=== PATIENT | female | born 1930 | race African-American/Black ===

== ENCOUNTER 2018-05-21 05:51 | Inpatient (IN) | payer MEDICARE ==
[2018-05-21] VITALS (7 sets, daily range): BP systolic 103–136; BP diastolic 44–94
[~2018-05-21] VITALS: Ht 162.6 cm; Wt 60.3 kg
[2018-05-21] MEDS ORDERED: METHYLPREDNISOLONE SOD SUCC 125 MG/2 ML VIAL IV STA (05:55)
[2018-05-21] MEDS ORDERED: IPRATROPIUM/ALBUTEROL 0.5-3(2.5)MG/3ML NEB HHN ONE (06:00)
[2018-05-21] MEDS ORDERED: MAGNESIUM 2 G PREMIX 50 ML IV ONE (06:00)
[2018-05-21] MEDS ORDERED: LEVOFLOXACIN 750MG PREMIX 150 ML IV ONE (06:00)
[2018-05-21 06:22] LABS: BASOPHILS % 0.8 % (0.0-2.0); EOSINOPHILS % 2.3 % (0.0-5.0); HEMATOCRIT. 25.3 % (36.0-48.0); HEMOGLOBIN. 8.2 g/dL (12.0-16.0); LYMPHOCYTES % 20.8 % (20.0-50.0); MEAN CORPUSCULAR HEMOGLOBIN 28.2 pg (28.0-32.0); MEAN CORPUSCULAR VOLUME 87.4 fL (81.0-99.0); MEAN PLATELET VOLUME 8.7 fl (7.4-10.4); MONOCYTES % 7.4 % (2.0-8.0); NEUTROPHILS % 68.7 % (40.0-76.0); PLATELET 216 x1000/uL (130-400); RED BLOOD CELL COUNT 2.89 mill/uL (4.2-5.4); RED CELL DISTRIBUTION WIDTH 14.5 % (11.6-14.6)
[2018-05-21 06:27] LABS: CHLORIDE 107 mEq/L (98-107)
[2018-05-21 06:29] LABS: INR 1.1; PARTIAL THROMBOPLASTIN TIME 25.2 sec (23.4-31.0)
[2018-05-21 06:31] LABS: ETHANOL BLOOD < 10 mg/dL
[2018-05-21] MEDS ORDERED: ALBUTEROL (0.083%) 2.5MG/3ML NEB HHN STA (06:41)
[2018-05-21 07:31] LABS: BG BASE EXCESS -3.8 mmol/L (-2.0-2.0); BG BILEVEL POS AIRWAY PRESSURE 15/8; BG CARBOXYHEMOGLOBIN 0.1 % (0.5-1.5); BG DEOXYHEMOGLOBIN 1.6 % (0.0-5.0); BG HCO3 ACT 20.7 mmol/L (22.0-26.0); BG METHEMOGLOBIN 0.3 % (0.0-1.5); BG OXYGEN SATURATION 98.4 % (92.0-98.5); BG PCO2 35.5 mmHg (35.0-45.0); BG PH 7.384 (7.350-7.450); BG PO2 134.8 mmHg (75.0-100.0); BG SAMPLE SITE RIGHT BRACHIAL; BG TOTAL HEMOGLOBIN 9.7 g/dL (12.0-18.0); BG VENT MODE MASK - BIPAP; BG VENT RATE 14 set
[2018-05-21] MEDS ORDERED: FUROSEMIDE 40MG/4ML VIAL IVP ONE (07:45)
[2018-05-21] MEDS ORDERED: ASPIRIN 325MG TABLET PO ONE (07:45)
[2018-05-21] MEDS ORDERED: ASPIRIN 81MG TABLET ONE (11:55)
[2018-05-21] MEDS ORDERED: CLONIDINE 0.1MG TABLET PO PRN (12:00)
[2018-05-21] MEDS ORDERED: GUAIFENESIN 200MG/10ML SUGAR FREE UDC PO PRN (12:00)
[2018-05-21] MEDS ORDERED: NITROGLYCERIN 0.4MG TABLET SL SL PRN (12:00)
[2018-05-21] MEDS ORDERED: DIPHENHYDRAMINE 50MG/ML VIAL IV PRN (12:00)
[2018-05-21] MEDS ORDERED: NA PHOS,M-B/NA PHOS,DI-BA ENEMA 118ML PR PRN (12:00)
[2018-05-21] MEDS ORDERED: ONDANSETRON HCL 4MG/2ML INJ IV PRN (12:00)
[2018-05-21] MEDS ORDERED: DOCUSATE SODIUM 100MG CAPSULE PO PRN (12:00)
[2018-05-21] MEDS ORDERED: MAGNESIUM/ALUMINUM HYDROXIDE/SIMETHICONE 30ML UDC PO PRN (12:00)
[2018-05-21 12:28] LABS: T4 FREE 0.99 ng/dL (0.76-1.46)
[2018-05-21 12:38] LABS: FOLIC ACID (FOLATE) SERUM 17.1 ng/mL (>5.38)
[2018-05-21] MEDS: MORPHINE SULFATE 4 MG/ML CPJ (NOT FOR IM USE) IV PRN ×2 (13:14→18:35)
[2018-05-21] MEDS: ENOXAPARIN 30MG/0.3ML SYR SUBCUT SCH (13:25)
[2018-05-21] MEDS: GUAIFENESIN/DM 600MG/30MG ER TAB 12HR PO SCH ×2 (13:25→21:05)
[2018-05-21] MEDS ORDERED: INFLUENZA VIRUS VACCINE(AFLURIA) 0.5ML SYR IM ONE (15:15)
[2018-05-21] MEDS ORDERED: PNEUMOCOCCAL 23-VAL P-SAC VAC 0.5 ML IM ONE (15:15)
[2018-05-21] MEDS: CEFTRIAXONE 1 G PREMIX 50 ML IV SCH (15:24)
[2018-05-21] MEDS: TRAMADOL 50MG TABLET PO PRN (15:30)
[2018-05-21 15:56] LABS: CREATINE KINASE MB FRACTION 6.6 ng/mL (0.5-3.6)
[2018-05-21] MEDS: ZOLPIDEM TARTRATE 5MG TABLET PO PRN (21:05)
[2018-05-21] MEDS: ATORVASTATIN CALCIUM 20MG TABLET PO SCH (21:05)
[2018-05-21] MEDS: ASCORBIC ACID 500 MG TABLET PO SCH (21:05)
[2018-05-21] MEDS: SPIRONOLACTONE 25MG TABLET PO SCH (21:05)
[2018-05-21] MEDS: CARVEDILOL 6.25 MG TABLET PO SCH (21:06)
[2018-05-21] MEDS: FUROSEMIDE 40MG/4ML VIAL IVP SCH (21:07)
[2018-05-21] MEDS: IPRATROPIUM/ALBUTEROL 0.5-3(2.5)MG/3ML NEB INH PRN (21:52)
[2018-05-21 23:20] LABS: CREATINE KINASE MB FRACTION 5.7 ng/mL (0.5-3.6)
[2018-05-22] VITALS (12 sets, daily range): BP systolic 83–130; BP diastolic 28–73
[2018-05-22] MEDS: IPRATROPIUM/ALBUTEROL 0.5-3(2.5)MG/3ML NEB INH PRN (02:48)
[2018-05-22] MEDS ORDERED: LEVOFLOXACIN 250MG PREMIX 50 ML IV SCH (05:00)
[2018-05-22] MEDS ORDERED: ASPIRIN 325MG EC TABLET PO SCH (09:00)
[2018-05-22] MEDS: GUAIFENESIN/DM 600MG/30MG ER TAB 12HR PO SCH ×2 (09:54→21:08)
[2018-05-22] MEDS: SPIRONOLACTONE 25MG TABLET PO SCH ×2 (09:54→21:08)
[2018-05-22] MEDS: ZINC SULFATE 220 MG ( 50 ) CAPSULE PO SCH (09:55)
[2018-05-22] MEDS: CARVEDILOL 6.25 MG TABLET PO SCH ×3 (09:55→21:00)
[2018-05-22] MEDS: ASCORBIC ACID 500 MG TABLET PO SCH ×2 (09:55→21:08)
[2018-05-22] MEDS: ENOXAPARIN 30MG/0.3ML SYR SUBCUT SCH ×2 (09:56→10:13)
[2018-05-22] MEDS: PANTOPRAZOLE SODIUM 40 MG/VIAL IV SCH (09:59)
[2018-05-22] MEDS: FUROSEMIDE 40MG/4ML VIAL IVP SCH ×2 (10:24→21:08)
[2018-05-22 11:07] LABS: BG BASE EXCESS -1.6 mmol/L (-2.0-2.0); BG BILEVEL POS AIRWAY PRESSURE 15/8; BG CARBOXYHEMOGLOBIN 0.2 % (0.5-1.5); BG DEOXYHEMOGLOBIN 1.2 % (0.0-5.0); BG FRACTION INSPIRED OXYGEN 35; BG HCO3 ACT 22.5 mmol/L (22.0-26.0); BG METHEMOGLOBIN 0.4 % (0.0-1.5); BG OXYGEN SATURATION 98.8 % (92.0-98.5); BG OXYHEMOGLOBIN 98.2 % (94.0-97.0); BG PCO2 35.1 mmHg (35.0-45.0); BG PH 7.425 (7.350-7.450); BG PO2 150.5 mmHg (75.0-100.0); BG SAMPLE SITE LEFT RADIAL; BG TOTAL HEMOGLOBIN 8.2 g/dL (12.0-18.0); BG VENT MODE MASK - BIPAP; BG VENT RATE 18 set
[2018-05-22] MEDS: METHYLPREDNISOLONE SOD SUCC 40 MG/ML VIAL IV SCH (17:01)
[2018-05-22] MEDS: CEFTRIAXONE 1 G PREMIX 50 ML IV SCH (17:01)
[2018-05-22] MEDS: VANCOMYCIN 1 G PREMIX 200 ML IV SCH ×2 (17:42→17:45)
[2018-05-22] MEDS: ATORVASTATIN CALCIUM 20MG TABLET PO SCH (21:08)
[2018-05-22] MEDS: IPRATROPIUM/ALBUTEROL 0.5-3(2.5)MG/3ML NEB HHN SCH (21:25)
[2018-05-22] MEDS: ACETAMINOPHEN 325MG TABLET PO PRN (22:03)
[2018-05-23] VITALS (13 sets, daily range): BP systolic 91–114; BP diastolic 56–74
[2018-05-23] MEDS: METHYLPREDNISOLONE SOD SUCC 40 MG/ML VIAL IV SCH ×3 (00:16→16:26)
[2018-05-23] MEDS: ZOLPIDEM TARTRATE 5MG TABLET PO PRN (00:21)
[2018-05-23] MEDS: LEVOFLOXACIN 250MG PREMIX 50 ML IV SCH (05:31)
[2018-05-23 07:09] LABS: HEMATOCRIT. 21.7 % (36.0-48.0); HEMOGLOBIN. 7.2 g/dL (12.0-16.0); MEAN CORPUSCULAR HEMOGLOBIN 28.5 pg (28.0-32.0); MEAN CORPUSCULAR VOLUME 85.8 fL (81.0-99.0); MEAN PLATELET VOLUME 9.8 fl (7.4-10.4); PLATELET 197 x1000/uL (130-400); RED BLOOD CELL COUNT 2.53 mill/uL (4.2-5.4); RED CELL DISTRIBUTION WIDTH 14.3 % (11.6-14.6)
[2018-05-23 08:29] LABS: CREATINE KINASE MB FRACTION 2.2 ng/mL (0.5-3.6)
[2018-05-23] MEDS: CARVEDILOL 6.25 MG TABLET PO SCH ×2 (08:56→21:00)
[2018-05-23] MEDS: GUAIFENESIN/DM 600MG/30MG ER TAB 12HR PO SCH ×2 (09:13→21:06)
[2018-05-23] MEDS: SPIRONOLACTONE 25MG TABLET PO SCH (09:13)
[2018-05-23] MEDS: ASCORBIC ACID 500 MG TABLET PO SCH ×2 (09:13→21:06)
[2018-05-23] MEDS: ZINC SULFATE 220 MG ( 50 ) CAPSULE PO SCH (09:13)
[2018-05-23] MEDS: ENOXAPARIN 30MG/0.3ML SYR SUBCUT SCH (09:14)
[2018-05-23] MEDS: PANTOPRAZOLE SODIUM 40 MG/VIAL IV SCH (09:15)
[2018-05-23] MEDS: FUROSEMIDE 40MG/4ML VIAL IVP SCH (09:17)
[2018-05-23] MEDS: CEFTRIAXONE 1 G PREMIX 50 ML IV SCH (11:00)
[2018-05-23] MEDS: IPRATROPIUM/ALBUTEROL 0.5-3(2.5)MG/3ML NEB HHN SCH ×3 (12:00→17:37)
[2018-05-23 13:31] LABS: PLATELET ESTIMATE NORMAL
[2018-05-23] MEDS ORDERED: VANCOMYCIN 750 MG PREMIX 150 ML IV SCH (17:30)
[2018-05-23] MEDS: PREDNISONE 20MG TABLET PO SCH (17:57)
[2018-05-23] MEDS ORDERED: VANCOMYCIN 500 MG PREMIX 100 ML IV SCH (21:00)
[2018-05-23] MEDS: ATORVASTATIN CALCIUM 20MG TABLET PO SCH (21:06)
[2018-05-23] MEDS: ACETAMINOPHEN 325MG TABLET PO PRN (21:07)
[2018-05-24] VITALS (12 sets, daily range): BP systolic 92–117; BP diastolic 55–74
[2018-05-24] MEDS: LEVOFLOXACIN 250MG PREMIX 50 ML IV SCH (04:52)
[2018-05-24] MEDS: ENOXAPARIN 30MG/0.3ML SYR SUBCUT SCH (09:00)
[2018-05-24] MEDS: CARVEDILOL 6.25 MG TABLET PO SCH ×2 (09:00→21:58)
[2018-05-24] MEDS: GUAIFENESIN/DM 600MG/30MG ER TAB 12HR PO SCH ×2 (09:03→21:59)
[2018-05-24] MEDS: ZINC SULFATE 220 MG ( 50 ) CAPSULE PO SCH (09:03)
[2018-05-24] MEDS: CEFTRIAXONE 1 G PREMIX 50 ML IV SCH (09:04)
[2018-05-24] MEDS: ASCORBIC ACID 500 MG TABLET PO SCH ×2 (09:04→21:59)
[2018-05-24] MEDS: PREDNISONE 20MG TABLET PO SCH ×2 (09:04→17:21)
[2018-05-24] MEDS: PANTOPRAZOLE SODIUM 40 MG/VIAL IV SCH (09:06)
[2018-05-24] MEDS: IPRATROPIUM/ALBUTEROL 0.5-3(2.5)MG/3ML NEB HHN SCH ×3 (09:25→20:59)
[2018-05-24 15:05] LABS: HEMATOCRIT. 25.5 % (36.0-48.0); HEMOGLOBIN. 8.3 g/dL (12.0-16.0); MEAN CORPUSCULAR VOLUME 85.6 fL (81.0-99.0); MEAN PLATELET VOLUME 9.4 fl (7.4-10.4); PLATELET 243 x1000/uL (130-400); RED BLOOD CELL COUNT 2.98 mill/uL (4.2-5.4); RED CELL DISTRIBUTION WIDTH 14.9 % (11.6-14.6)
[2018-05-24 16:24] LABS: BG CARBOXYHEMOGLOBIN 0.3 % (0.5-1.5); BG DEOXYHEMOGLOBIN 3.9 % (0.0-5.0); BG FRACTION INSPIRED OXYGEN 21; BG METHEMOGLOBIN 0.3 % (0.0-1.5); BG OXYGEN SATURATION 96.1 % (92.0-98.5); BG OXYHEMOGLOBIN 95.5 % (94.0-97.0); BG PCO2 34.1 mmHg (35.0-45.0); BG PH 7.428 (7.350-7.450); BG PO2 86.2 mmHg (75.0-100.0); BG SAMPLE SITE LEFT RADIAL; BG TOTAL HEMOGLOBIN 8.4 g/dL (12.0-18.0); BG VENT MODE ROOM AIR
[2018-05-24 16:43] LABS: PLATELET ESTIMATE NORMAL
[2018-05-24 19:32] LABS: CLARITY URINE CLEAR (CLEAR); COLOR URINE YELLOW (YELLOW); KETONES URINE NEGATIVE (NEGATIVE); LEUKOCYTE ESTERASE URINE NEGATIVE (NEGATIVE); NITRITE URINE NEGATIVE (NEGATIVE); OCCULT BLOOD URINE 1+ (NEGATIVE); PROTEIN URINE NEGATIVE (NEGATIVE); SPECIFIC GRAVITY URINE 1.006 (1.005-1.030); UROBILINOGEN URINE 0.2 E.U./dL (0.2-1.0)
[2018-05-24] MEDS: BUDESONIDE 0.5MG/2ML NEB HHN SCH (20:59)
[2018-05-24] MEDS: TRAMADOL 50MG TABLET PO PRN (21:02)
[2018-05-24] MEDS: ATORVASTATIN CALCIUM 20MG TABLET PO SCH (21:58)
[2018-05-25] VITALS (10 sets, daily range): BP systolic 91–119; BP diastolic 51–67
[2018-05-25] MEDS: IPRATROPIUM/ALBUTEROL 0.5-3(2.5)MG/3ML NEB HHN SCH ×3 (01:53→14:30)
[2018-05-25] MEDS: LEVOFLOXACIN 250MG PREMIX 50 ML IV SCH (05:12)
[2018-05-25 06:39] LABS: HEMATOCRIT. 23.7 % (36.0-48.0); MEAN CORPUSCULAR HEMOGLOBIN 28.8 pg (28.0-32.0); MEAN CORPUSCULAR VOLUME 85.7 fL (81.0-99.0); MEAN PLATELET VOLUME 9.6 fl (7.4-10.4); PLATELET 244 x1000/uL (130-400); RED BLOOD CELL COUNT 2.77 mill/uL (4.2-5.4); RED CELL DISTRIBUTION WIDTH 14.5 % (11.6-14.6)
[2018-05-25] MEDS: CEFTRIAXONE 1 G PREMIX 50 ML IV SCH (08:25)
[2018-05-25] MEDS: ENOXAPARIN 30MG/0.3ML SYR SUBCUT SCH (08:26)
[2018-05-25] MEDS: GUAIFENESIN/DM 600MG/30MG ER TAB 12HR PO SCH (08:26)
[2018-05-25] MEDS: ZINC SULFATE 220 MG ( 50 ) CAPSULE PO SCH (08:26)
[2018-05-25] MEDS: ASCORBIC ACID 500 MG TABLET PO SCH (08:27)
[2018-05-25] MEDS: BUDESONIDE 0.5MG/2ML NEB HHN SCH (08:45)
[2018-05-25 08:55] LABS: PLATELET ESTIMATE NORMAL
[2018-05-25] MEDS ORDERED: FAMOTIDINE 20MG TABLET PO SCH (09:00)
[2018-05-25] MEDS ORDERED: PREDNISONE 20MG TABLET PO SCH (09:00)
[2018-05-25] MEDS: CARVEDILOL 6.25 MG TABLET PO SCH (09:22)
== END 2018-05-25 15:55 | disposition home health service (06) | DRG 871 ==
LOC: ER 06:21 → 5EST 09:17 → EDBEDREQSVC 09:21 → EDBEDREQTM 09:21 → EDBEDREQ 09:21 → ENRESERV 10:48 → SUPCPDRO 11:58
PROVIDERS: ADMIT Internal Medicine; ATTEND Internal Medicine
PROC: 5A09357 Assistance with Respiratory Ventilation, Less than 24 Consecutive Hours, Continuous Positive Airway Pressure (ICD-10-PCS; principal; 2018-05-21)
DX: A41.9 Sepsis, unspecified organism (principal); I21.4 Non-ST elevation (NSTEMI) myocardial infarction; J96.00 Acute respiratory failure, unspecified whether with hypoxia or hypercapnia; E43 Unspecified severe protein-calorie malnutrition; I50.43 Acute on chronic combined systolic (congestive) and diastolic (congestive) heart failure; I42.9 Cardiomyopathy, unspecified; J44.1 Chronic obstructive pulmonary disease with (acute) exacerbation; J45.901 Unspecified asthma with (acute) exacerbation; N17.9 Acute kidney failure, unspecified; F17.210 Nicotine dependence, cigarettes, uncomplicated; R65.20 Severe sepsis without septic shock; B96.89 Other specified bacterial agents as the cause of diseases classified elsewhere; Z79.82 Long term (current) use of aspirin; D63.8 Anemia in other chronic diseases classified elsewhere; E78.5 Hyperlipidemia, unspecified; I11.0 Hypertensive heart disease with heart failure; I27.20 Pulmonary hypertension, unspecified; Z68.22 Body mass index [BMI] 22.0-22.9, adult
CPT/HCPCS: 36415; 36600; 71045; 80048; 80061; 82270; 82375; 82550; 82553; 82607; 82746; 82805; 83036; 83540; 83550; 83605; 83735; 83880; 84439; 84443; 84484; 93005; 93306; 94618; 94640; 94660; 96365; 96366; 96375; 97116; 97162; 97166; 97530; 99291; C9113; G0482; J0696; J1650; J1940; J1956; J2270; J2920; J2930; J3370; J3475; J7030; J7040; J7512; J7620; J7626; A4315

== ENCOUNTER 2018-08-09 13:46 | Inpatient (IN) | payer MEDICARE ==
[~2018-08-09] VITALS: Ht 172.7 cm; Wt 59.0 kg
[2018-08-09] MEDS ORDERED: IPRATROPIUM BROMIDE (0.02%) 0.5MG/2.5ML NEB HHN STA (14:09)
[2018-08-09] MEDS ORDERED: ALBUTEROL (0.083%) 2.5MG/3ML NEB HHN STA (14:09)
[2018-08-09] MEDS ORDERED: ASPIRIN 81MG TABLET PO ONE (14:15)
[2018-08-09 16:07] LABS: BASOPHILS % 0.5 % (0.0-2.0); EOSINOPHILS % 1.1 % (0.0-5.0); HEMATOCRIT. 29.5 % (36.0-48.0); HEMOGLOBIN. 9.3 g/dL (12.0-16.0); LYMPHOCYTES % 18.7 % (20.0-50.0); MEAN CORPUSCULAR HEMOGLOBIN 27.1 pg (28.0-32.0); MEAN CORPUSCULAR VOLUME 85.9 fL (81.0-99.0); MEAN PLATELET VOLUME 8.8 fl (7.4-10.4); MONOCYTES % 7.5 % (2.0-8.0); NEUTROPHILS % 72.2 % (40.0-76.0); PLATELET 243 x1000/uL (130-400); RED BLOOD CELL COUNT 3.44 mill/uL (4.2-5.4); RED CELL DISTRIBUTION WIDTH 18.5 % (11.6-14.6)
[2018-08-09 16:16] LABS: INR 1.1; PARTIAL THROMBOPLASTIN TIME 26.8 sec (23.4-31.0); PROTHROMBIN TIME 11.5 sec (9.1-11.1)
[2018-08-09 16:17] LABS: CHLORIDE 108 mEq/L (98-107)
[2018-08-09] MEDS ORDERED: FUROSEMIDE 20MG/2ML VIAL IVP ONE (16:45)
[2018-08-09] MEDS ORDERED: POTASSIUM CHLORIDE 20MEQ TABLET SR PO ONE (16:45)
[2018-08-09] MEDS ORDERED: MAGNESIUM HYDROXIDE 400MG/5ML 30ML UDC PO PRN (19:00)
[2018-08-09] MEDS ORDERED: IPRATROPIUM/ALBUTEROL 0.5-3(2.5)MG/3ML NEB INH PRN (19:00)
[2018-08-09] MEDS ORDERED: CLONIDINE 0.1MG TABLET PO PRN (19:00)
[2018-08-09] MEDS ORDERED: GUAIFENESIN 200MG/10ML SUGAR FREE UDC PO PRN (19:00)
[2018-08-09] MEDS ORDERED: LORAZEPAM 0.5MG TABLET PO PRN (19:00)
[2018-08-09] MEDS ORDERED: TEMAZEPAM 15MG CAPSULE PO PRN (19:00)
[2018-08-09] MEDS ORDERED: ONDANSETRON HCL 4MG/2ML INJ IV PRN (19:00)
[2018-08-09] MEDS ORDERED: MAGNESIUM/ALUMINUM HYDROXIDE/SIMETHICONE 30ML UDC PO PRN (19:00)
[2018-08-09 21:15] VITALS: BP 108/69
[2018-08-09] MEDS: CARVEDILOL 3.125 MG TABLET PO SCH (22:05)
[2018-08-09] MEDS: METHYLPREDNISOLONE SOD SUCC 40 MG/ML VIAL IV SCH (22:16)
[2018-08-09] MEDS: SODIUM CHLORIDE 0.9% INJ 3ML FLUSH IVF SCH (22:16)
[2018-08-09] MEDS: POTASSIUM CHLORIDE 20MEQ TABLET SR PO SCH (22:16)
[2018-08-09] MEDS: FAMOTIDINE 20MG TABLET PO SCH (22:16)
[2018-08-09] MEDS ORDERED: LISI2.5T89 PO (22:51)
[2018-08-09] MEDS ORDERED: FURO-151 PO (22:51)
[2018-08-09] MEDS ORDERED: COR3 PO (22:51)
[2018-08-10] VITALS: BP 105/69
[2018-08-10] MEDS: ACETAMINOPHEN 325MG TABLET PO PRN ×2 (00:05→17:08)
[2018-08-10] MEDS: IPRATROPIUM/ALBUTEROL 0.5-3(2.5)MG/3ML NEB HHN SCH ×6 (00:09→20:40)
[2018-08-10 04:00] VITALS: BP 98/59
[2018-08-10] MEDS: METHYLPREDNISOLONE SOD SUCC 40 MG/ML VIAL IV SCH ×3 (06:14→21:40)
[2018-08-10] MEDS: SODIUM CHLORIDE 0.9% INJ 3ML FLUSH IVF SCH ×2 (06:14→21:41)
[2018-08-10 08:00] VITALS: BP 102/66
[2018-08-10] MEDS: BUDESONIDE 0.5MG/2ML NEB HHN SCH ×2 (08:03→20:40)
[2018-08-10] MEDS ORDERED: ENOXAPARIN 40MG/0.4ML SYR SUBCUT SCH (09:00)
[2018-08-10] MEDS: CARVEDILOL 3.125 MG TABLET PO SCH ×2 (09:00→21:40)
[2018-08-10] MEDS ORDERED: FUROSEMIDE 40MG/4ML VIAL IVP SCH (09:00)
[2018-08-10] MEDS: LISINOPRIL 2.5MG TABLET PO SCH (09:00)
[2018-08-10] MEDS: ASPIRIN 81MG EC TABLET PO SCH (09:22)
[2018-08-10] MEDS: DOCUSATE SODIUM 100MG CAPSULE PO SCH ×2 (09:23→17:07)
[2018-08-10] MEDS: POTASSIUM CHLORIDE 20MEQ TABLET SR PO SCH (09:23)
[2018-08-10] MEDS: ENOXAPARIN 30MG/0.3ML SYR SUBCUT SCH (09:26)
[2018-08-10 12:00] VITALS: BP 111/63
[2018-08-10 16:00] VITALS: BP 105/62
[2018-08-10 20:00] VITALS: BP 118/74
[2018-08-10] MEDS: FAMOTIDINE 20MG TABLET PO SCH (21:40)
[2018-08-10] MEDS ORDERED: TRAMADOL 50MG TABLET PO PRN (22:15)
[2018-08-11] VITALS: BP 108/68
[2018-08-11] MEDS: IPRATROPIUM/ALBUTEROL 0.5-3(2.5)MG/3ML NEB HHN SCH ×6 (00:27→21:31)
[2018-08-11 04:00] VITALS: BP 100/68
[2018-08-11] MEDS: METHYLPREDNISOLONE SOD SUCC 40 MG/ML VIAL IV SCH ×3 (06:21→21:40)
[2018-08-11] MEDS: FUROSEMIDE 40MG/4ML VIAL IVP SCH ×2 (06:21→17:19)
[2018-08-11] MEDS: SODIUM CHLORIDE 0.9% INJ 3ML FLUSH IVF SCH ×2 (06:22→14:31)
[2018-08-11] MEDS: BUDESONIDE 0.5MG/2ML NEB HHN SCH ×2 (07:22→21:32)
[2018-08-11 08:00] VITALS: BP 105/66
[2018-08-11] MEDS: LISINOPRIL 2.5MG TABLET PO SCH (09:00)
[2018-08-11] MEDS: CARVEDILOL 3.125 MG TABLET PO SCH ×2 (09:00→21:00)
[2018-08-11] MEDS: DOCUSATE SODIUM 100MG CAPSULE PO SCH ×2 (09:02→17:19)
[2018-08-11] MEDS: ASPIRIN 81MG EC TABLET PO SCH (09:05)
[2018-08-11] MEDS: ENOXAPARIN 30MG/0.3ML SYR SUBCUT SCH (09:06)
[2018-08-11 12:00] VITALS: BP 111/62
[2018-08-11 16:00] VITALS: BP 115/57
[2018-08-11 20:00] VITALS: BP 102/70
[2018-08-11] MEDS: FAMOTIDINE 20MG TABLET PO SCH (21:41)
[2018-08-12] VITALS: BP 110/54
[2018-08-12] MEDS: IPRATROPIUM/ALBUTEROL 0.5-3(2.5)MG/3ML NEB HHN SCH ×5 (01:18→15:59)
[2018-08-12 04:00] VITALS: BP 107/69
[2018-08-12] MEDS: SODIUM CHLORIDE 0.9% INJ 3ML FLUSH IVF SCH ×3 (05:41→13:04)
[2018-08-12] MEDS: METHYLPREDNISOLONE SOD SUCC 40 MG/ML VIAL IV SCH (05:41)
[2018-08-12 08:00] VITALS: BP_SYST 102; BP_SYST 95; BP_DIAS 65; BP_DIAS 67
[2018-08-12] MEDS: BUDESONIDE 0.5MG/2ML NEB HHN SCH (08:09)
[2018-08-12] MEDS: FUROSEMIDE 40MG/4ML VIAL IVP SCH ×2 (08:14→16:45)
[2018-08-12] MEDS: ASPIRIN 81MG EC TABLET PO SCH (08:16)
[2018-08-12] MEDS: DOCUSATE SODIUM 100MG CAPSULE PO SCH ×2 (08:16→16:52)
[2018-08-12] MEDS: ENOXAPARIN 30MG/0.3ML SYR SUBCUT SCH (08:17)
[2018-08-12] MEDS: CARVEDILOL 3.125 MG TABLET PO SCH (08:18)
[2018-08-12] MEDS: LISINOPRIL 2.5MG TABLET PO SCH (08:19)
[2018-08-12 12:00] VITALS: BP_SYST 95; BP_DIAS 63; BP_DIAS 65
[2018-08-12] MEDS ORDERED: PREDNISONE 20MG TABLET PO SCH (14:00)
[2018-08-12 16:19] VITALS: BP 107/66
[2018-08-12 17:20] VITALS: BP 107/66
== END 2018-08-12 18:30 | disposition home health service (06) | DRG 291 ==
LOC: ER 13:46 → 7WST 16:47 → ENRESERV 19:54
PROVIDERS: ADMIT Internal Medicine; ATTEND Internal Medicine
DX: I11.0 Hypertensive heart disease with heart failure (principal); J96.90 Respiratory failure, unspecified, unspecified whether with hypoxia or hypercapnia; E43 Unspecified severe protein-calorie malnutrition; J44.1 Chronic obstructive pulmonary disease with (acute) exacerbation; Z68.1 Body mass index [BMI] 19.9 or less, adult; I50.23 Acute on chronic systolic (congestive) heart failure; E11.51 Type 2 diabetes mellitus with diabetic peripheral angiopathy without gangrene; Z87.891 Personal history of nicotine dependence; Z91.041 Radiographic dye allergy status
CPT/HCPCS: 36415; 71045; 80048; 80051; 83735; 83880; 84443; 84484; 93005; 93970; 94640; 96374; 99291; J1650; J1940; J2920; J7512; J7611; J7620; J7626

== ENCOUNTER 2018-08-16 23:42 | Inpatient (IN) | payer MEDICARE ==
[~2018-08-16] VITALS: Ht 172.7 cm; Wt 79.5 kg
[~2018-08-16 23:42] MED LIST: FURO-151 PO
[2018-08-17 01:02] LABS: BASOPHILS % 0.6 % (0.0-2.0); EOSINOPHILS % 0.7 % (0.0-5.0); HEMATOCRIT. 30.8 % (36.0-48.0); HEMOGLOBIN. 9.6 g/dL (12.0-16.0); LYMPHOCYTES % 15.2 % (20.0-50.0); MEAN CORPUSCULAR HEMOGLOBIN 26.5 pg (28.0-32.0); MEAN CORPUSCULAR VOLUME 85.1 fL (81.0-99.0); MEAN PLATELET VOLUME 9.2 fl (7.4-10.4); NEUTROPHILS % 76.5 % (40.0-76.0); PLATELET 235 x1000/uL (130-400); RED BLOOD CELL COUNT 3.62 mill/uL (4.2-5.4); RED CELL DISTRIBUTION WIDTH 17.6 % (11.6-14.6)
[2018-08-17 01:08] LABS: CHLORIDE 102 mEq/L (98-107)
[2018-08-17] MEDS ORDERED: SODIUM CHLORIDE 0.9% 1000ML BAG (SEPSIS BOLUS) IV ONE (01:30)
[2018-08-17] MEDS ORDERED: ASPIRIN 325MG EC TABLET PO NR (01:30)
[2018-08-17] MEDS ORDERED: ENOXAPARIN 60MG/0.6ML SYR SUBCUT NR (05:00)
[2018-08-17 08:18] LABS: CLARITY URINE CLEAR (CLEAR); COLOR URINE YELLOW (YELLOW); KETONES URINE NEGATIVE (NEGATIVE); LEUKOCYTE ESTERASE URINE 2+ (NEGATIVE); NITRITE URINE NEGATIVE (NEGATIVE); OCCULT BLOOD URINE 1+ (NEGATIVE); PROTEIN URINE NEGATIVE (NEGATIVE); SPECIFIC GRAVITY URINE 1.004 (1.005-1.030); UROBILINOGEN URINE 0.2 E.U./dL (0.2-1.0)
[2018-08-17 08:45] VITALS: BP 93/62
[2018-08-17 10:00] VITALS: BP 93/62
[2018-08-17] MEDS ORDERED: ENOXAPARIN 40MG/0.4ML SYR SUBCUT SCH (10:15)
[2018-08-17] MEDS: FUROSEMIDE 40MG/4ML VIAL IVP SCH ×2 (10:15→14:00)
[2018-08-17] MEDS ORDERED: ACETAMINOPHEN 325MG TABLET PO PRN (10:15)
[2018-08-17] MEDS ORDERED: ONDANSETRON HCL 4MG/2ML INJ IV PRN (10:15)
[2018-08-17] MEDS ORDERED: CLONIDINE 0.1MG TABLET PO PRN (10:15)
[2018-08-17] MEDS ORDERED: MAGNESIUM/ALUMINUM HYDROXIDE/SIMETHICONE 30ML UDC PO PRN (10:15)
[2018-08-17] MEDS: METHYLPREDNISOLONE SOD SUCC 40 MG/ML VIAL IV SCH ×2 (11:15→18:14)
[2018-08-17 12:00] VITALS: BP 109/62
[2018-08-17] MEDS: IPRATROPIUM/ALBUTEROL 0.5-3(2.5)MG/3ML NEB HHN SCH ×3 (12:59→20:48)
[2018-08-17] MEDS ORDERED: PNEUMOCOCCAL 23-VAL P-SAC VAC 0.5 ML IM ONE (14:00)
[2018-08-17] MEDS ORDERED: INFLUENZA VIRUS VACCINE(AFLURIA) 0.5ML SYR IM ONE (14:00)
[2018-08-17 16:00] VITALS: BP 106/66
[2018-08-17] MEDS: DOCUSATE SODIUM 100MG CAPSULE PO SCH (18:13)
[2018-08-17 20:00] VITALS: BP 102/60
[2018-08-17] MEDS: SODIUM CHLORIDE 0.9% INJ 3ML FLUSH IVF SCH (20:16)
[2018-08-17] MEDS: CARVEDILOL 3.125 MG TABLET PO SCH (21:00)
[2018-08-17] MEDS: FAMOTIDINE 20MG TABLET PO SCH (21:39)
[2018-08-17] MEDS: TRAMADOL 50MG TABLET PO PRN (21:46)
[2018-08-17] MEDS: GUAIFENESIN 200MG/10ML SUGAR FREE UDC PO PRN (23:40)
[2018-08-17] MEDS: LORAZEPAM 0.5MG TABLET PO PRN (23:49)
[2018-08-18] VITALS (21 sets, daily range): BP systolic 81–131; BP diastolic 48–84
[2018-08-18] MEDS: IPRATROPIUM/ALBUTEROL 0.5-3(2.5)MG/3ML NEB HHN SCH ×5 (00:43→15:54)
[2018-08-18] MEDS: METHYLPREDNISOLONE SOD SUCC 40 MG/ML VIAL IV SCH ×4 (02:49→23:56)
[2018-08-18] MEDS: SODIUM CHLORIDE 0.9% INJ 3ML FLUSH IVF SCH ×4 (02:50→22:00)
[2018-08-18] MEDS ORDERED: DIGOXIN 500MCG/2ML AMP IV NR (08:30)
[2018-08-18] MEDS: DOCUSATE SODIUM 100MG CAPSULE PO SCH ×2 (08:35→18:21)
[2018-08-18] MEDS: ASPIRIN 81MG EC TABLET PO SCH (08:35)
[2018-08-18] MEDS: POTASSIUM CHLORIDE 20MEQ TABLET SR PO SCH (08:35)
[2018-08-18] MEDS: LISINOPRIL 2.5MG TABLET PO SCH (08:36)
[2018-08-18] MEDS: CARVEDILOL 3.125 MG TABLET PO SCH ×2 (08:36→21:00)
[2018-08-18] MEDS ORDERED: ENOXAPARIN 30MG/0.3ML SYR SUBCUT SCH (09:00)
[2018-08-18] MEDS: TRAMADOL 50MG TABLET PO PRN (13:35)
[2018-08-18] MEDS ORDERED: EPINEPHRINE 0.1MG/ML (1:10,000) 10ML SYR ONE (13:43)
[2018-08-18] MEDS: LORAZEPAM 0.5MG TABLET PO PRN (14:00)
[2018-08-18] MEDS ORDERED: SUCCINYLCHOLINE CHLORIDE 200MG/10ML IV ONE (15:18)
[2018-08-18] MEDS ORDERED: ETOMIDATE 2MG/ML 10ML VIAL IV ONE (15:18)
[2018-08-18] MEDS: THROAT LOZENGES-BENZOCAINE/MENTH/CETYLPYRD CL LOZENGES MM PRN (16:44)
[2018-08-18] MEDS: DIGOXIN 125MCG TABLET PO SCH (18:21)
[2018-08-18 20:43] LABS: BG BASE EXCESS -19.1 mmol/L (-2.0-2.0); BG CARBOXYHEMOGLOBIN 0.3 % (0.5-1.5); BG DEOXYHEMOGLOBIN 1.1 % (0.0-5.0); BG FRACTION INSPIRED OXYGEN 100; BG HCO3 ACT 9.8 mmol/L (22.0-26.0); BG METHEMOGLOBIN 0.1 % (0.0-1.5); BG OXYGEN SATURATION 98.9 % (92.0-98.5); BG OXYHEMOGLOBIN 98.5 % (94.0-97.0); BG PH 7.076 (7.350-7.450); BG PO2 227.7 mmHg (75.0-100.0); BG SAMPLE SITE RIGHT BRACHIAL; BG TIDAL VOLUME(mL) 550 mL; BG TOTAL HEMOGLOBIN 9.9 g/dL (12.0-18.0); BG VENT MODE VENT - A/C; BG VENT RATE 14 set
[2018-08-18] MEDS: LORAZEPAM 2MG/ML CPJ IV PRN (20:58)
[2018-08-18] MEDS: FAMOTIDINE 20MG TABLET PO SCH (21:00)
[2018-08-18] MEDS ORDERED: SODIUM BICARBONATE 8.4% 1 MEQ/ML 50ML SYR IV NR (21:15)
[2018-08-18] MEDS: PROPOFOL 10MG/ML 100ML 100 ML IV PRN (21:29)
[2018-08-18] MEDS ORDERED: SODIUM BICARBONATE 150 MEQ in DEXTROSE 5% WATER 1,000 ML IV SCH (23:00)
[2018-08-18 23:08] LABS: HEMATOCRIT. 29.9 % (36.0-48.0); HEMOGLOBIN. 9.2 g/dL (12.0-16.0); MEAN CORPUSCULAR HEMOGLOBIN 26.6 pg (28.0-32.0); MEAN CORPUSCULAR VOLUME 85.9 fL (81.0-99.0); MEAN PLATELET VOLUME 9.2 fl (7.4-10.4); PLATELET 235 x1000/uL (130-400); RED BLOOD CELL COUNT 3.48 mill/uL (4.2-5.4); RED CELL DISTRIBUTION WIDTH 17.8 % (11.6-14.6)
[2018-08-18 23:22] LABS: CREATINE KINASE MB FRACTION 11.6 ng/mL (0.5-3.6)
[2018-08-18] MEDS ORDERED: DEXTROSE 50% WATER 50ML SYRINGE IV PRN (23:30)
[2018-08-18 23:58] LABS: PLATELET ESTIMATE NORMAL
[2018-08-19] VITALS (83 sets, daily range): BP systolic 83–139; BP diastolic 27–82
[2018-08-19] MEDS ORDERED: BLOOD SUGAR DIAGNOSTIC STRIP TEST SCH
[2018-08-19] MEDS ORDERED: CEFTRIAXONE 1 G PREMIX 50 ML IV SCH
[2018-08-19 00:25] LABS: BG BASE EXCESS -5.6 mmol/L (-2.0-2.0); BG CARBOXYHEMOGLOBIN 0.3 % (0.5-1.5); BG DEOXYHEMOGLOBIN 16.8 % (0.0-5.0); BG FRACTION INSPIRED OXYGEN 70; BG HCO3 ACT 19.5 mmol/L (22.0-26.0); BG METHEMOGLOBIN 0.3 % (0.0-1.5); BG OXYGEN SATURATION 83.1 % (92.0-98.5); BG OXYHEMOGLOBIN 82.6 % (94.0-97.0); BG PCO2 36.4 mmHg (35.0-45.0); BG PH 7.346 (7.350-7.450); BG PO2 52.7 mmHg (75.0-100.0); BG SAMPLE SITE RIGHT BRACHIAL; BG TIDAL VOLUME(mL) 550 mL; BG VENT MODE VENT - A/C; BG VENT RATE 18 set
[2018-08-19] MEDS: IPRATROPIUM/ALBUTEROL 0.5-3(2.5)MG/3ML NEB HHN SCH ×6 (00:38→20:13)
[2018-08-19] MEDS ORDERED: DEXTROSE 50% WATER 50ML SYRINGE IV SCH (00:45)
[2018-08-19] MEDS ORDERED: INSULIN REGULAR (HUMULIN R) 300UNITS/3ML SUBCUT SCH (00:45)
[2018-08-19] MEDS: ENOXAPARIN 60MG/0.6ML SYR SUBCUT SCH (01:40)
[2018-08-19] MEDS: INSULIN LISPRO 100 UNITS/ML SUBCUT SCH ×4 (01:42→23:49)
[2018-08-19] MEDS ORDERED: VANCOMYCIN 1250MG in DEXTROSE 5% WATER 250ML IV SCH (02:00)
[2018-08-19] MEDS: BLOOD SUGAR DIAGNOSTIC STRIP TEST SCH ×5 (05:27→23:49)
[2018-08-19] MEDS: METHYLPREDNISOLONE SOD SUCC 40 MG/ML VIAL IV SCH ×3 (05:31→21:14)
[2018-08-19] MEDS: SODIUM CHLORIDE 0.9% INJ 3ML FLUSH IVF SCH ×3 (06:00→22:00)
[2018-08-19 08:36] LABS: HEMATOCRIT. 33.2 % (36.0-48.0); MEAN CORPUSCULAR HEMOGLOBIN 26.5 pg (28.0-32.0); MEAN CORPUSCULAR VOLUME 88.2 fL (81.0-99.0); MEAN PLATELET VOLUME 9.7 fl (7.4-10.4); PLATELET 208 x1000/uL (130-400); RED BLOOD CELL COUNT 3.76 mill/uL (4.2-5.4); RED CELL DISTRIBUTION WIDTH 18.2 % (11.6-14.6)
[2018-08-19 08:49] LABS: BG BASE EXCESS -0.4 mmol/L (-2.0-2.0); BG CARBOXYHEMOGLOBIN 0.3 % (0.5-1.5); BG DEOXYHEMOGLOBIN 1.1 % (0.0-5.0); BG FRACTION INSPIRED OXYGEN 100; BG HCO3 ACT 21.7 mmol/L (22.0-26.0); BG METHEMOGLOBIN 0.4 % (0.0-1.5); BG OXYGEN SATURATION 98.9 % (92.0-98.5); BG OXYHEMOGLOBIN 98.2 % (94.0-97.0); BG PH 7.523 (7.350-7.450); BG PO2 136.5 mmHg (75.0-100.0); BG SAMPLE SITE RIGHT BRACHIAL; BG TIDAL VOLUME(mL) 550 mL; BG TOTAL HEMOGLOBIN 9.4 g/dL (12.0-18.0); BG VENT MODE VENT - A/C; BG VENT RATE 18 set
[2018-08-19] MEDS: POTASSIUM CHLORIDE 20MEQ TABLET SR PO SCH (09:00)
[2018-08-19] MEDS: LISINOPRIL 2.5MG TABLET PO SCH (09:00)
[2018-08-19] MEDS: DOCUSATE SODIUM 100MG CAPSULE PO SCH (09:00)
[2018-08-19] MEDS: PROPOFOL 10MG/ML 100ML 100 ML IV PRN (09:41)
[2018-08-19] MEDS: ASPIRIN 81MG EC TABLET PO SCH (09:55)
[2018-08-19] MEDS: PANTOPRAZOLE SODIUM 40 MG/VIAL IV SCH (09:55)
[2018-08-19] MEDS: CARVEDILOL 3.125 MG TABLET PO SCH ×2 (09:55→21:00)
[2018-08-19] MEDS ORDERED: FUROSEMIDE 40MG/4ML VIAL IVP NR (11:45)
[2018-08-19] MEDS ORDERED: SODIUM POLYSTYRENE SULFONATE 15 G/60 ML BOT PO NR (13:00)
[2018-08-19] MEDS: PIPERACILLIN/TAZ 3.375G PREMIX 50 ML IV SCH ×2 (13:17→21:14)
[2018-08-19] MEDS: CITRIC ACID/SODIUM CITRATE SOLN 15ML UDC PO SCH ×2 (13:23→16:14)
[2018-08-19 15:44] LABS: INR 1.2
[2018-08-19 15:51] LABS: PLATELET ESTIMATE NORMAL
[2018-08-19] MEDS: DOCUSATE SODIUM SUGAR FREE 100MG/10ML UDC NG SCH (16:13)
[2018-08-19] MEDS: DIGOXIN 125MCG TABLET PO SCH (18:30)
[2018-08-19] MEDS ORDERED: PROPOFOL 10MG/ML 100ML 100 ML IV PRN (23:30)
[2018-08-20] VITALS (52 sets, daily range): BP systolic 89–126; BP diastolic 44–76
[2018-08-20] MEDS: IPRATROPIUM/ALBUTEROL 0.5-3(2.5)MG/3ML NEB HHN SCH ×6 (00:14→20:31)
[2018-08-20] MEDS ORDERED: VANCOMYCIN 750 MG PREMIX 150 ML IV SCH (02:00)
[2018-08-20] MEDS ORDERED: VANCOMYCIN 1 G PREMIX 200 ML IV SCH (02:00)
[2018-08-20] MEDS: ENOXAPARIN 60MG/0.6ML SYR SUBCUT SCH (02:09)
[2018-08-20] MEDS: PIPERACILLIN/TAZ 3.375G PREMIX 50 ML IV SCH ×3 (04:49→21:17)
[2018-08-20 05:34] LABS: PHOSPHORUS 4.7 mg/dL (2.5-4.9)
[2018-08-20 05:55] LABS: DIGOXIN 0.8 ng/mL (0.9-2.0)
[2018-08-20] MEDS: BLOOD SUGAR DIAGNOSTIC STRIP TEST SCH ×3 (05:55→17:08)
[2018-08-20] MEDS: SODIUM CHLORIDE 0.9% INJ 3ML FLUSH IVF SCH ×3 (05:55→22:00)
[2018-08-20] MEDS: METHYLPREDNISOLONE SOD SUCC 40 MG/ML VIAL IV SCH ×3 (05:56→21:45)
[2018-08-20] MEDS: INSULIN LISPRO 100 UNITS/ML SUBCUT SCH ×3 (06:00→17:16)
[2018-08-20 08:08] LABS: BG BASE EXCESS 0.4 mmol/L (-2.0-2.0); BG CARBOXYHEMOGLOBIN 0.3 % (0.5-1.5); BG DEOXYHEMOGLOBIN 0.6 % (0.0-5.0); BG FRACTION INSPIRED OXYGEN 80; BG HCO3 ACT 23.4 mmol/L (22.0-26.0); BG OXYGEN SATURATION 99.4 % (92.0-98.5); BG OXYHEMOGLOBIN 99.1 % (94.0-97.0); BG PCO2 31.7 mmHg (35.0-45.0); BG PH 7.486 (7.350-7.450); BG PO2 307.8 mmHg (75.0-100.0); BG SAMPLE SITE RIGHT BRACHIAL; BG TIDAL VOLUME(mL) 500 mL; BG TOTAL HEMOGLOBIN 9.4 g/dL (12.0-18.0); BG VENT MODE VENT - A/C; BG VENT RATE 16 set
[2018-08-20] MEDS: CARVEDILOL 3.125 MG TABLET PO SCH ×2 (08:08→21:00)
[2018-08-20] MEDS: LISINOPRIL 2.5MG TABLET PO SCH (08:09)
[2018-08-20] MEDS: POTASSIUM CHLORIDE 20MEQ TABLET SR PO SCH (08:09)
[2018-08-20] MEDS: CITRIC ACID/SODIUM CITRATE SOLN 15ML UDC PO SCH (08:10)
[2018-08-20] MEDS: PANTOPRAZOLE SODIUM 40 MG/VIAL IV SCH (08:10)
[2018-08-20] MEDS: DOCUSATE SODIUM SUGAR FREE 100MG/10ML UDC NG SCH ×2 (08:10→17:14)
[2018-08-20] MEDS: ASPIRIN 81MG EC TABLET PO SCH (08:10)
[2018-08-20] MEDS ORDERED: SORBITOL 70% SOLN 30ML NG NR (09:30)
[2018-08-20] MEDS: SODIUM CHLORIDE 0.45% 1,000 ML IV SCH (11:04)
[2018-08-20] MEDS: PROPOFOL 10MG/ML 100ML 100 ML IV PRN (11:18)
[2018-08-20 11:24] LABS: HEMATOCRIT. 25.4 % (36.0-48.0); HEMOGLOBIN. 8.3 g/dL (12.0-16.0); MEAN CORPUSCULAR VOLUME 83.2 fL (81.0-99.0); MEAN PLATELET VOLUME 9.6 fl (7.4-10.4); PLATELET 166 x1000/uL (130-400); RED BLOOD CELL COUNT 3.06 mill/uL (4.2-5.4); RED CELL DISTRIBUTION WIDTH 17.8 % (11.6-14.6)
[2018-08-20] MEDS ORDERED: FUROSEMIDE 40MG/4ML VIAL IVP NR (12:00)
[2018-08-20 12:40] LABS: PLATELET ESTIMATE NORMAL
[2018-08-20] MEDS: DIGOXIN 125MCG TABLET PO SCH (17:14)
[2018-08-21] VITALS (48 sets, daily range): BP systolic 84–115; BP diastolic 43–70
[2018-08-21] MEDS: BLOOD SUGAR DIAGNOSTIC STRIP TEST SCH ×4 (00:07→17:38)
[2018-08-21] MEDS: IPRATROPIUM/ALBUTEROL 0.5-3(2.5)MG/3ML NEB HHN SCH ×6 (00:20→20:50)
[2018-08-21] MEDS: PROPOFOL 10MG/ML 100ML 100 ML IV PRN ×2 (00:56→12:14)
[2018-08-21] MEDS: ENOXAPARIN 60MG/0.6ML SYR SUBCUT SCH (02:33)
[2018-08-21] MEDS: METHYLPREDNISOLONE SOD SUCC 40 MG/ML VIAL IV SCH ×3 (05:09→21:33)
[2018-08-21] MEDS: PIPERACILLIN/TAZ 3.375G PREMIX 50 ML IV SCH ×3 (05:09→21:31)
[2018-08-21] MEDS: INSULIN LISPRO 100 UNITS/ML SUBCUT SCH ×4 (05:10→17:38)
[2018-08-21 06:24] LABS: HEMATOCRIT. 26.7 % (36.0-48.0); HEMOGLOBIN. 8.5 g/dL (12.0-16.0); MEAN CORPUSCULAR VOLUME 84.4 fL (81.0-99.0); MEAN PLATELET VOLUME 9.6 fl (7.4-10.4); PLATELET 172 x1000/uL (130-400); RED BLOOD CELL COUNT 3.16 mill/uL (4.2-5.4); RED CELL DISTRIBUTION WIDTH 17.8 % (11.6-14.6)
[2018-08-21] MEDS: SODIUM CHLORIDE 0.9% INJ 3ML FLUSH IVF SCH ×3 (06:25→22:00)
[2018-08-21 06:58] LABS: PHOSPHORUS 5.4 mg/dL (2.5-4.9)
[2018-08-21 07:50] LABS: PLATELET ESTIMATE NORMAL
[2018-08-21] MEDS ORDERED: VANCOMYCIN 750 MG PREMIX 150 ML IV NR (08:00)
[2018-08-21] MEDS: DOCUSATE SODIUM SUGAR FREE 100MG/10ML UDC NG SCH ×2 (08:31→17:00)
[2018-08-21] MEDS: PANTOPRAZOLE SODIUM 40 MG/VIAL IV SCH (08:38)
[2018-08-21] MEDS: ASPIRIN 81MG EC TABLET PO SCH (08:38)
[2018-08-21] MEDS: CARVEDILOL 3.125 MG TABLET PO SCH ×2 (08:39→21:00)
[2018-08-21 08:48] LABS: BG BASE EXCESS 2.8 mmol/L (-2.0-2.0); BG CARBOXYHEMOGLOBIN 0.4 % (0.5-1.5); BG DEOXYHEMOGLOBIN 1.2 % (0.0-5.0); BG FRACTION INSPIRED OXYGEN 50; BG HCO3 ACT 26.9 mmol/L (22.0-26.0); BG METHEMOGLOBIN 0.5 % (0.0-1.5); BG OXYGEN SATURATION 98.8 % (92.0-98.5); BG OXYHEMOGLOBIN 97.9 % (94.0-97.0); BG PCO2 39.3 mmHg (35.0-45.0); BG PH 7.453 (7.350-7.450); BG PO2 149.8 mmHg (75.0-100.0); BG SAMPLE SITE LEFT BRACHIAL; BG TIDAL VOLUME(mL) 500 mL; BG TOTAL HEMOGLOBIN 8.9 g/dL (12.0-18.0); BG VENT MODE VENT - A/C; BG VENT RATE 12 set
[2018-08-21] MEDS: SODIUM CHLORIDE 0.45% 1,000 ML IV SCH (14:02)
[2018-08-21] MEDS: DIGOXIN 125MCG TABLET PO SCH (17:40)
[2018-08-22] VITALS (45 sets, daily range): BP systolic 85–119; BP diastolic 32–70
[2018-08-22] MEDS: INSULIN LISPRO 100 UNITS/ML SUBCUT SCH ×4 (00:11→17:45)
[2018-08-22] MEDS: BLOOD SUGAR DIAGNOSTIC STRIP TEST SCH ×4 (00:11→17:45)
[2018-08-22] MEDS: IPRATROPIUM/ALBUTEROL 0.5-3(2.5)MG/3ML NEB HHN SCH ×6 (00:37→20:23)
[2018-08-22] MEDS: ENOXAPARIN 60MG/0.6ML SYR SUBCUT SCH ×2 (02:00→02:55)
[2018-08-22] MEDS: PROPOFOL 10MG/ML 100ML 100 ML IV PRN (02:55)
[2018-08-22] MEDS: PIPERACILLIN/TAZ 3.375G PREMIX 50 ML IV SCH ×4 (05:26→21:15)
[2018-08-22] MEDS: METHYLPREDNISOLONE SOD SUCC 40 MG/ML VIAL IV SCH ×2 (05:28→16:59)
[2018-08-22] MEDS: SODIUM CHLORIDE 0.9% INJ 3ML FLUSH IVF SCH ×3 (05:35→21:01)
[2018-08-22 05:43] LABS: HEMATOCRIT. 25.5 % (36.0-48.0); HEMOGLOBIN. 8.1 g/dL (12.0-16.0); MEAN CORPUSCULAR HEMOGLOBIN 26.8 pg (28.0-32.0); MEAN CORPUSCULAR VOLUME 84.8 fL (81.0-99.0); MEAN PLATELET VOLUME 9.7 fl (7.4-10.4); PHOSPHORUS 4.3 mg/dL (2.5-4.9); PLATELET 155 x1000/uL (130-400); RED CELL DISTRIBUTION WIDTH 18.2 % (11.6-14.6)
[2018-08-22 07:40] LABS: BG BASE EXCESS 2.5 mmol/L (-2.0-2.0); BG CARBOXYHEMOGLOBIN 0.3 % (0.5-1.5); BG DEOXYHEMOGLOBIN 1.5 % (0.0-5.0); BG FRACTION INSPIRED OXYGEN 40; BG HCO3 ACT 26.1 mmol/L (22.0-26.0); BG METHEMOGLOBIN 0.3 % (0.0-1.5); BG OXYGEN SATURATION 98.5 % (92.0-98.5); BG OXYHEMOGLOBIN 97.9 % (94.0-97.0); BG PCO2 36.2 mmHg (35.0-45.0); BG PH 7.476 (7.350-7.450); BG PO2 140.9 mmHg (75.0-100.0); BG SAMPLE SITE RIGHT RADIAL; BG TIDAL VOLUME(mL) 500 mL; BG TOTAL HEMOGLOBIN 8.2 g/dL (12.0-18.0); BG VENT MODE VENT - A/C; BG VENT RATE 12 set
[2018-08-22 08:05] LABS: PLATELET ESTIMATE NORMAL
[2018-08-22] MEDS: DOCUSATE SODIUM SUGAR FREE 100MG/10ML UDC NG SCH ×2 (08:13→16:02)
[2018-08-22] MEDS: CARVEDILOL 3.125 MG TABLET PO SCH ×2 (08:13→21:00)
[2018-08-22] MEDS: ASPIRIN 81MG EC TABLET PO SCH (08:20)
[2018-08-22] MEDS: SODIUM CHLORIDE 0.45% 1,000 ML IV SCH (08:20)
[2018-08-22] MEDS: PANTOPRAZOLE SODIUM 40 MG/VIAL IV SCH (08:20)
[2018-08-22] MEDS ORDERED: PROPOFOL 10MG/ML 100ML 100 ML IV PRN (10:30)
[2018-08-22] MEDS ORDERED: LORAZEPAM 2MG/ML CPJ IV PRN (10:30)
[2018-08-22] MEDS: VANCOMYCIN 1 G PREMIX 200 ML IV SCH (11:10)
[2018-08-22] MEDS: LORAZEPAM 2MG/ML CPJ IV PRN ×2 (11:55→21:15)
[2018-08-22] MEDS: DIGOXIN 125MCG TABLET PO SCH (16:59)
[2018-08-23] VITALS (46 sets, daily range): BP systolic 85–131; BP diastolic 42–82
[2018-08-23] MEDS: BLOOD SUGAR DIAGNOSTIC STRIP TEST SCH ×5 (00:24→23:45)
[2018-08-23] MEDS: INSULIN LISPRO 100 UNITS/ML SUBCUT SCH ×5 (00:25→23:47)
[2018-08-23] MEDS: IPRATROPIUM/ALBUTEROL 0.5-3(2.5)MG/3ML NEB HHN SCH ×7 (00:39→20:18)
[2018-08-23] MEDS: ENOXAPARIN 60MG/0.6ML SYR SUBCUT SCH (02:58)
[2018-08-23] MEDS: LORAZEPAM 2MG/ML CPJ IV PRN ×4 (03:37→20:16)
[2018-08-23] MEDS: IPRATROPIUM/ALBUTEROL 0.5-3(2.5)MG/3ML NEB INH PRN (04:51)
[2018-08-23 05:27] LABS: BASOPHILS % 0.3 % (0.0-2.0); EOSINOPHILS % 0.1 % (0.0-5.0); HEMATOCRIT. 26.1 % (36.0-48.0); HEMOGLOBIN. 8.2 g/dL (12.0-16.0); LYMPHOCYTES % 7.5 % (20.0-50.0); MEAN CORPUSCULAR HEMOGLOBIN 26.5 pg (28.0-32.0); MEAN CORPUSCULAR VOLUME 84.1 fL (81.0-99.0); MEAN PLATELET VOLUME 9.2 fl (7.4-10.4); MONOCYTES % 4.7 % (2.0-8.0); NEUTROPHILS % 87.4 % (40.0-76.0); PLATELET 193 x1000/uL (130-400)
[2018-08-23] MEDS: SODIUM CHLORIDE 0.9% INJ 3ML FLUSH IVF SCH ×3 (05:36→20:29)
[2018-08-23] MEDS: PIPERACILLIN/TAZ 3.375G PREMIX 50 ML IV SCH ×2 (05:36→12:45)
[2018-08-23] MEDS: CARVEDILOL 3.125 MG TABLET PO SCH ×2 (08:11→21:00)
[2018-08-23] MEDS: DOCUSATE SODIUM SUGAR FREE 100MG/10ML UDC NG SCH ×2 (08:11→16:13)
[2018-08-23] MEDS: ASPIRIN 81MG EC TABLET PO SCH (08:22)
[2018-08-23] MEDS: METHYLPREDNISOLONE SOD SUCC 40 MG/ML VIAL IV SCH ×2 (08:22→16:16)
[2018-08-23] MEDS: PANTOPRAZOLE SODIUM 40 MG/VIAL IV SCH (08:22)
[2018-08-23] MEDS: SODIUM CHLORIDE 0.45% 1,000 ML IV SCH (08:23)
[2018-08-23 09:45] LABS: BG BASE EXCESS 3.9 mmol/L (-2.0-2.0); BG CARBOXYHEMOGLOBIN 0.6 % (0.5-1.5); BG FRACTION INSPIRED OXYGEN 40; BG HCO3 ACT 27.7 mmol/L (22.0-26.0); BG METHEMOGLOBIN 0.5 % (0.0-1.5); BG OXYHEMOGLOBIN 97.9 % (94.0-97.0); BG PCO2 38.7 mmHg (35.0-45.0); BG PH 7.473 (7.350-7.450); BG PO2 152.5 mmHg (75.0-100.0); BG SAMPLE SITE LEFT BRACHIAL; BG TIDAL VOLUME(mL) 500 mL; BG TOTAL HEMOGLOBIN 8.5 g/dL (12.0-18.0); BG VENT MODE VENT - SIMV; BG VENT RATE 8 set
[2018-08-23 12:17] LABS: BG BASE EXCESS 1.7 mmol/L (-2.0-2.0); BG CARBOXYHEMOGLOBIN 0.2 % (0.5-1.5); BG DEOXYHEMOGLOBIN 2.5 % (0.0-5.0); BG FRACTION INSPIRED OXYGEN 40; BG HCO3 ACT 26.1 mmol/L (22.0-26.0); BG METHEMOGLOBIN 0.3 % (0.0-1.5); BG OXYGEN SATURATION 97.5 % (92.0-98.5); BG PCO2 39.8 mmHg (35.0-45.0); BG PH 7.434 (7.350-7.450); BG PO2 109.5 mmHg (75.0-100.0); BG PRESSURE SUPPORT 8; BG SAMPLE SITE RIGHT RADIAL; BG VENT MODE VENT - CPAP
[2018-08-23] MEDS: THROAT LOZENGES-BENZOCAINE/MENTH/CETYLPYRD CL LOZENGES MM PRN (16:16)
[2018-08-23] MEDS: VANCOMYCIN 1 G PREMIX 200 ML IV SCH (16:16)
[2018-08-23] MEDS ORDERED: NAFCILLIN SODIUM IV SCH (17:00)
[2018-08-23] MEDS ORDERED: DEXTROSE 5% IV SCH (17:00)
[2018-08-23] MEDS ORDERED: WATER IV SCH (17:00)
[2018-08-23] MEDS: DIGOXIN 125MCG TABLET PO SCH (17:04)
[2018-08-23] MEDS: NAFCILLIN SODIUM IV SCH ×2 (19:17→21:08)
[2018-08-23] MEDS: WATER IV SCH ×2 (19:17→21:08)
[2018-08-23] MEDS: DEXTROSE 5% IV SCH ×2 (19:17→21:08)
[2018-08-24] VITALS (41 sets, daily range): BP systolic 57–161; BP diastolic 29–100
[2018-08-24] MEDS: IPRATROPIUM/ALBUTEROL 0.5-3(2.5)MG/3ML NEB HHN SCH ×6 (00:20→20:08)
[2018-08-24] MEDS: LORAZEPAM 2MG/ML CPJ IM PRN ×2 (00:21→04:02)
[2018-08-24] MEDS: WATER IV SCH ×5 (03:01→21:28)
[2018-08-24] MEDS: DEXTROSE 5% IV SCH ×5 (03:01→21:28)
[2018-08-24] MEDS: NAFCILLIN SODIUM IV SCH ×5 (03:01→21:28)
[2018-08-24 05:35] LABS: BASOPHILS % 0.1 % (0.0-2.0); HEMATOCRIT. 23.6 % (36.0-48.0); HEMOGLOBIN. 7.5 g/dL (12.0-16.0); LYMPHOCYTES % 7.8 % (20.0-50.0); MEAN CORPUSCULAR HEMOGLOBIN 26.8 pg (28.0-32.0); MEAN CORPUSCULAR VOLUME 84.5 fL (81.0-99.0); MEAN PLATELET VOLUME 9.3 fl (7.4-10.4); MONOCYTES % 5.8 % (2.0-8.0); NEUTROPHILS % 86.3 % (40.0-76.0); PLATELET 200 x1000/uL (130-400); RED BLOOD CELL COUNT 2.79 mill/uL (4.2-5.4); RED CELL DISTRIBUTION WIDTH 17.9 % (11.6-14.6)
[2018-08-24 05:46] LABS: PHOSPHORUS 3.5 mg/dL (2.5-4.9)
[2018-08-24] MEDS: BLOOD SUGAR DIAGNOSTIC STRIP TEST SCH ×3 (06:00→17:30)
[2018-08-24] MEDS: IPRATROPIUM/ALBUTEROL 0.5-3(2.5)MG/3ML NEB INH PRN (08:50)
[2018-08-24] MEDS: ASPIRIN 81MG EC TABLET PO SCH (08:57)
[2018-08-24] MEDS: METHYLPREDNISOLONE SOD SUCC 40 MG/ML VIAL IV SCH ×2 (08:57→17:07)
[2018-08-24] MEDS: PANTOPRAZOLE SODIUM 40 MG/VIAL IV SCH (08:57)
[2018-08-24] MEDS: CARVEDILOL 3.125 MG TABLET PO SCH ×2 (08:58→21:20)
[2018-08-24] MEDS: DOCUSATE SODIUM SUGAR FREE 100MG/10ML UDC NG SCH ×2 (08:59→16:58)
[2018-08-24] MEDS: SODIUM CHLORIDE 0.45% 1,000 ML IV SCH (09:00)
[2018-08-24] MEDS ORDERED: BENZONATATE 100MG CAPSULE PO PRN (10:00)
[2018-08-24] MEDS ORDERED: KCL 20MEQ/100ML PREMIX 100 ML IV SCH (10:00)
[2018-08-24 10:26] LABS: BG BASE EXCESS -0.6 mmol/L (-2.0-2.0); BG CARBOXYHEMOGLOBIN 1.7 % (0.5-1.5); BG DEOXYHEMOGLOBIN 1.8 % (0.0-5.0); BG FRACTION INSPIRED OXYGEN 40; BG METHEMOGLOBIN 0.1 % (0.0-1.5); BG OXYGEN SATURATION 98.2 % (92.0-98.5); BG OXYHEMOGLOBIN 96.4 % (94.0-97.0); BG PCO2 32.6 mmHg (35.0-45.0); BG PH 7.466 (7.350-7.450); BG PO2 120.9 mmHg (75.0-100.0); BG SAMPLE SITE RIGHT BRACHIAL; BG TOTAL HEMOGLOBIN 7.2 g/dL (12.0-18.0); BG VENT MODE NASAL CANNULA
[2018-08-24] MEDS: GUAIFENESIN 600MG ER TABLET PO SCH ×2 (12:42→21:28)
[2018-08-24] MEDS: INSULIN LISPRO 100 UNITS/ML SUBCUT SCH ×2 (12:44→17:38)
[2018-08-24] MEDS ORDERED: FUROSEMIDE 40MG/4ML VIAL IVP NR (15:15)
[2018-08-24] MEDS: DIGOXIN 125MCG TABLET PO SCH (17:29)
[2018-08-24] MEDS: GUAIFENESIN 200MG/10ML SUGAR FREE UDC PO PRN ×2 (17:58→21:20)
[2018-08-24] MEDS: SODIUM CHLORIDE 0.9% INJ 3ML FLUSH IVF SCH (21:28)
[2018-08-25] VITALS (64 sets, daily range): BP systolic 52–124; BP diastolic 19–85
[2018-08-25] MEDS: BLOOD SUGAR DIAGNOSTIC STRIP TEST SCH ×5 (00:03→23:42)
[2018-08-25] MEDS: IPRATROPIUM/ALBUTEROL 0.5-3(2.5)MG/3ML NEB HHN SCH ×6 (00:12→21:22)
[2018-08-25] MEDS: DEXTROSE 5% IV SCH ×5 (02:01→22:08)
[2018-08-25] MEDS: WATER IV SCH ×5 (02:01→22:08)
[2018-08-25] MEDS: NAFCILLIN SODIUM IV SCH ×5 (02:01→22:08)
[2018-08-25] MEDS: ENOXAPARIN 60MG/0.6ML SYR SUBCUT SCH (02:02)
[2018-08-25] MEDS: GUAIFENESIN 200MG/10ML SUGAR FREE UDC PO PRN ×2 (03:24→12:26)
[2018-08-25] MEDS: INSULIN LISPRO 100 UNITS/ML SUBCUT SCH ×5 (05:29→23:43)
[2018-08-25] MEDS: SODIUM CHLORIDE 0.9% INJ 3ML FLUSH IVF SCH ×2 (05:29→22:04)
[2018-08-25] MEDS: SODIUM CHLORIDE 0.45% 1,000 ML IV SCH (05:30)
[2018-08-25 05:34] LABS: HEMATOCRIT. 23.8 % (36.0-48.0); HEMOGLOBIN. 7.5 g/dL (12.0-16.0); MEAN CORPUSCULAR HEMOGLOBIN 26.7 pg (28.0-32.0); MEAN CORPUSCULAR VOLUME 84.8 fL (81.0-99.0); MEAN PLATELET VOLUME 9.3 fl (7.4-10.4); PLATELET 179 x1000/uL (130-400); RED BLOOD CELL COUNT 2.81 mill/uL (4.2-5.4); RED CELL DISTRIBUTION WIDTH 18.1 % (11.6-14.6)
[2018-08-25 05:41] LABS: CHLORIDE 108 mEq/L (98-107)
[2018-08-25] MEDS: ASPIRIN 81MG EC TABLET PO SCH (08:39)
[2018-08-25] MEDS: METHYLPREDNISOLONE SOD SUCC 40 MG/ML VIAL IV SCH ×2 (08:39→17:40)
[2018-08-25] MEDS: PANTOPRAZOLE SODIUM 40 MG/VIAL IV SCH (08:39)
[2018-08-25] MEDS: DOCUSATE SODIUM SUGAR FREE 100MG/10ML UDC NG SCH ×2 (08:40→17:00)
[2018-08-25] MEDS: GUAIFENESIN 600MG ER TABLET PO SCH ×2 (08:42→21:00)
[2018-08-25] MEDS: CARVEDILOL 3.125 MG TABLET PO SCH ×2 (08:43→21:00)
[2018-08-25] MEDS ORDERED: SODIUM CHLORIDE 0.9% 10ML VIAL ONE (11:12)
[2018-08-25] MEDS ORDERED: VECURONIUM BROMIDE 10 MG/VIAL IV ONE (11:12)
[2018-08-25] MEDS ORDERED: ATROPINE SULFATE 1MG/10ML SYR ONE (11:12)
[2018-08-25] MEDS ORDERED: ETOMIDATE 2MG/ML 10ML VIAL IV ONE (11:12)
[2018-08-25] MEDS: LORAZEPAM 2MG/ML CPJ IM PRN (11:18)
[2018-08-25] MEDS ORDERED: FUROSEMIDE 40MG/4ML VIAL IV NR (11:30)
[2018-08-25 11:40] LABS: PLATELET ESTIMATE NORMAL
[2018-08-25] MEDS ORDERED: PROPOFOL 10MG/ML 100ML 100 ML IV PRN (15:45)
[2018-08-25] MEDS ORDERED: DOPAMINE 800MG PREMIX (DOUBLE) 250 ML IV PRN (15:45)
[2018-08-25] MEDS ORDERED: NOREPINEPHRINE 32 MG in DEXT 5% WATER 468 ML IV PRN (15:45)
[2018-08-25 16:11] LABS: BG BASE EXCESS -12.9 mmol/L (-2.0-2.0); BG CARBOXYHEMOGLOBIN 0.3 % (0.5-1.5); BG DEOXYHEMOGLOBIN 0.9 % (0.0-5.0); BG FRACTION INSPIRED OXYGEN 100; BG HCO3 ACT 14.9 mmol/L (22.0-26.0); BG METHEMOGLOBIN 0.2 % (0.0-1.5); BG OXYGEN SATURATION 99.1 % (92.0-98.5); BG OXYHEMOGLOBIN 98.6 % (94.0-97.0); BG PCO2 43.1 mmHg (35.0-45.0); BG PH 7.158 (7.350-7.450); BG PO2 225.1 mmHg (75.0-100.0); BG SAMPLE SITE RIGHT RADIAL; BG TIDAL VOLUME(mL) 500 mL; BG TOTAL HEMOGLOBIN 8.6 g/dL (12.0-18.0); BG VENT MODE VENT - A/C; BG VENT RATE 14 set
[2018-08-25] MEDS ORDERED: SODIUM BICARBONATE 8.4% 1 MEQ/ML 50ML SYR IV NR (16:15)
[2018-08-25] MEDS ORDERED: HEPARIN 25,000 UNITS PREMIX 500 ML IV PRN (16:45)
[2018-08-25 17:00] LABS: HEMATOCRIT. 25.5 % (36.0-48.0); MEAN CORPUSCULAR VOLUME 86.6 fL (81.0-99.0); MEAN PLATELET VOLUME 9.5 fl (7.4-10.4); PLATELET 212 x1000/uL (130-400); RED BLOOD CELL COUNT 2.95 mill/uL (4.2-5.4); RED CELL DISTRIBUTION WIDTH 17.7 % (11.6-14.6)
[2018-08-25 17:28] LABS: BG BASE EXCESS -6.1 mmol/L (-2.0-2.0); BG CARBOXYHEMOGLOBIN 0.2 % (0.5-1.5); BG DEOXYHEMOGLOBIN 1.9 % (0.0-5.0); BG FRACTION INSPIRED OXYGEN 100; BG HCO3 ACT 17.8 mmol/L (22.0-26.0); BG METHEMOGLOBIN 0.2 % (0.0-1.5); BG OXYGEN SATURATION 98.1 % (92.0-98.5); BG OXYHEMOGLOBIN 97.7 % (94.0-97.0); BG PCO2 29.4 mmHg (35.0-45.0); BG PH 7.401 (7.350-7.450); BG PO2 122.8 mmHg (75.0-100.0); BG SAMPLE SITE RIGHT RADIAL; BG TIDAL VOLUME(mL) 500 mL; BG TOTAL HEMOGLOBIN 8.7 g/dL (12.0-18.0); BG VENT MODE VENT - A/C; BG VENT RATE 20 set
[2018-08-25] MEDS: PIPERACILLIN/TAZ 2.25G PREMIX 50 ML IV SCH ×2 (17:35→22:10)
[2018-08-25] MEDS: DIGOXIN 125MCG TABLET PO SCH (17:53)
[2018-08-25 17:55] LABS: PLATELET ESTIMATE NORMAL
[2018-08-25 19:41] LABS: INR 1.4; PARTIAL THROMBOPLASTIN TIME 22.9 sec (23.4-31.0); PROTHROMBIN TIME 13.9 sec (9.1-11.1)
[2018-08-25] MEDS ORDERED: FUROSEMIDE 40MG/4ML VIAL IVP SCH (19:45)
[2018-08-25] MEDS ORDERED: HEPARIN BOLUS PRN aPTT 30-44 IV (20:30)
[2018-08-25] MEDS ORDERED: HEPARIN 60 UNITS/KG BOLUS IV NR (20:30)
[2018-08-25] MEDS ORDERED: HEPARIN BOLUS PRN aPTT <30 IV (20:30)
[2018-08-25] MEDS ORDERED: PHENYLEPHRINE 80 MG in DEXT 5% WATER 492 ML IV PRN (21:00)
[2018-08-25] MEDS: HEPARIN 25,000 UNITS PREMIX 500 ML IV SCH (21:15)
[2018-08-25] MEDS: PHENYLEPHRINE 80 MG in DEXT 5% WATER 500 ML IV PRN (21:20)
[2018-08-25 23:52] LABS: HEMATOCRIT 31.3 % (36.0-48.0); HEMOGLOBIN 9.5 g/dL (12.0-16.0)
[2018-08-26] VITALS (91 sets, daily range): BP systolic 79–133; BP diastolic 28–79
[2018-08-26] MEDS: IPRATROPIUM/ALBUTEROL 0.5-3(2.5)MG/3ML NEB HHN SCH ×6 (02:16→20:27)
[2018-08-26] MEDS: WATER IV SCH ×6 (03:46→22:58)
[2018-08-26] MEDS: DEXTROSE 5% IV SCH ×6 (03:46→22:58)
[2018-08-26] MEDS: NAFCILLIN SODIUM IV SCH ×6 (03:46→22:58)
[2018-08-26] MEDS: PIPERACILLIN/TAZ 2.25G PREMIX 50 ML IV SCH ×4 (04:58→22:58)
[2018-08-26] MEDS: INSULIN LISPRO 100 UNITS/ML SUBCUT SCH ×4 (06:00→23:11)
[2018-08-26] MEDS: BLOOD SUGAR DIAGNOSTIC STRIP TEST SCH ×4 (06:32→23:01)
[2018-08-26] MEDS: PHENYLEPHRINE 80 MG in DEXT 5% WATER 500 ML IV PRN (06:32)
[2018-08-26] MEDS: SODIUM CHLORIDE 0.9% INJ 3ML FLUSH IVF SCH ×3 (06:33→21:13)
[2018-08-26 06:49] LABS: BASOPHILS % 0.2 % (0.0-2.0); EOSINOPHILS % 0.1 % (0.0-5.0); HEMOGLOBIN. 8.4 g/dL (12.0-16.0); LYMPHOCYTES % 13.7 % (20.0-50.0); MEAN CORPUSCULAR HEMOGLOBIN 27.7 pg (28.0-32.0); MEAN CORPUSCULAR VOLUME 86.1 fL (81.0-99.0); MEAN PLATELET VOLUME 9.7 fl (7.4-10.4); MONOCYTES % 8.6 % (2.0-8.0); NEUTROPHILS % 77.4 % (40.0-76.0); PLATELET 241 x1000/uL (130-400); RED BLOOD CELL COUNT 3.02 mill/uL (4.2-5.4); RED CELL DISTRIBUTION WIDTH 17.9 % (11.6-14.6)
[2018-08-26 08:42] LABS: BG BASE EXCESS -3.7 mmol/L (-2.0-2.0); BG CARBOXYHEMOGLOBIN 0.3 % (0.5-1.5); BG DEOXYHEMOGLOBIN 0.4 % (0.0-5.0); BG FRACTION INSPIRED OXYGEN 100; BG HCO3 ACT 18.3 mmol/L (22.0-26.0); BG METHEMOGLOBIN 0.3 % (0.0-1.5); BG OXYGEN SATURATION 99.6 % (92.0-98.5); BG PCO2 23.1 mmHg (35.0-45.0); BG PH 7.516 (7.350-7.450); BG PO2 442.5 mmHg (75.0-100.0); BG SAMPLE SITE RIGHT RADIAL; BG TIDAL VOLUME(mL) 500 mL; BG TOTAL HEMOGLOBIN 8.8 g/dL (12.0-18.0); BG VENT MODE VENT - A/C; BG VENT RATE 20 set
[2018-08-26] MEDS: PANTOPRAZOLE SODIUM 40 MG/VIAL IV SCH (08:54)
[2018-08-26] MEDS: METHYLPREDNISOLONE SOD SUCC 40 MG/ML VIAL IV SCH ×2 (08:54→17:00)
[2018-08-26] MEDS: GUAIFENESIN 600MG ER TABLET PO SCH ×2 (08:55→21:00)
[2018-08-26] MEDS: CARVEDILOL 3.125 MG TABLET PO SCH ×2 (08:55→21:00)
[2018-08-26] MEDS: ASPIRIN 81MG EC TABLET PO SCH (08:55)
[2018-08-26] MEDS: DOCUSATE SODIUM SUGAR FREE 100MG/10ML UDC NG SCH ×2 (08:55→16:47)
[2018-08-26 09:13] LABS: CHLORIDE 101 mEq/L (98-107)
[2018-08-26 09:25] LABS: CREATINE KINASE MB FRACTION 23.7 ng/mL (0.5-3.6)
[2018-08-26] MEDS ORDERED: FUROSEMIDE 40MG/4ML VIAL IVP SCH (13:00)
[2018-08-26] MEDS: SODIUM CHLORIDE 0.9% 1,000 ML IV SCH (14:23)
[2018-08-26 15:25] LABS: HEMATOCRIT 27.8 % (36.0-48.0); HEMOGLOBIN 8.9 g/dL (12.0-16.0)
[2018-08-26] MEDS ORDERED: PHENYLEPHRINE 80 MG in DEXT 5% WATER 492 ML IV PRN (15:30)
[2018-08-26] MEDS: PROPOFOL 10MG/ML 100ML 100 ML IV PRN (17:01)
[2018-08-26] MEDS: DIGOXIN 125MCG TABLET PO SCH (17:08)
[2018-08-26 21:11] LABS: HEMATOCRIT 29.2 % (36.0-48.0); HEMOGLOBIN 9.3 g/dL (12.0-16.0)
[2018-08-26] MEDS: PHENYLEPHRINE 80 MG in DEXT 5% WATER 492 ML IV PRN (22:58)
[2018-08-27] VITALS (94 sets, daily range): BP systolic 86–117; BP diastolic 45–80
[2018-08-27] MEDS: IPRATROPIUM/ALBUTEROL 0.5-3(2.5)MG/3ML NEB HHN SCH ×6 (00:24→20:53)
[2018-08-27] MEDS: HEPARIN 25,000 UNITS PREMIX 500 ML IV SCH (03:13)
[2018-08-27] MEDS: DEXTROSE 5% IV SCH ×6 (03:15→21:18)
[2018-08-27] MEDS: WATER IV SCH ×6 (03:15→21:18)
[2018-08-27] MEDS: NAFCILLIN SODIUM IV SCH ×6 (03:15→21:18)
[2018-08-27 05:44] LABS: BASOPHILS % 0.1 % (0.0-2.0); HEMATOCRIT. 28.1 % (36.0-48.0); HEMOGLOBIN. 9.1 g/dL (12.0-16.0); LYMPHOCYTES % 9.4 % (20.0-50.0); MEAN CORPUSCULAR HEMOGLOBIN 28.3 pg (28.0-32.0); MEAN CORPUSCULAR VOLUME 87.9 fL (81.0-99.0); MEAN PLATELET VOLUME 9.7 fl (7.4-10.4); MONOCYTES % 7.6 % (2.0-8.0); NEUTROPHILS % 82.9 % (40.0-76.0); PLATELET 251 x1000/uL (130-400); RED CELL DISTRIBUTION WIDTH 18.5 % (11.6-14.6)
[2018-08-27] MEDS: SODIUM CHLORIDE 0.9% INJ 3ML FLUSH IVF SCH ×3 (05:53→21:18)
[2018-08-27] MEDS: PROPOFOL 10MG/ML 100ML 100 ML IV PRN ×2 (06:04→17:37)
[2018-08-27] MEDS: PIPERACILLIN/TAZ 2.25G PREMIX 50 ML IV SCH ×4 (06:04→22:31)
[2018-08-27] MEDS: INSULIN LISPRO 100 UNITS/ML SUBCUT SCH ×4 (06:05→23:39)
[2018-08-27] MEDS: BLOOD SUGAR DIAGNOSTIC STRIP TEST SCH ×4 (06:05→23:35)
[2018-08-27] MEDS: PHENYLEPHRINE 80 MG in DEXT 5% WATER 492 ML IV PRN ×3 (07:31→22:33)
[2018-08-27] MEDS: SODIUM CHLORIDE 0.9% 1,000 ML IV SCH (07:40)
[2018-08-27 07:54] LABS: BG BASE EXCESS -5.2 mmol/L (-2.0-2.0); BG CARBOXYHEMOGLOBIN 0.3 % (0.5-1.5); BG DEOXYHEMOGLOBIN 1.6 % (0.0-5.0); BG FRACTION INSPIRED OXYGEN 40; BG HCO3 ACT 18.1 mmol/L (22.0-26.0); BG OXYGEN SATURATION 98.4 % (92.0-98.5); BG OXYHEMOGLOBIN 98.1 % (94.0-97.0); BG PCO2 28.1 mmHg (35.0-45.0); BG PH 7.428 (7.350-7.450); BG PO2 136.9 mmHg (75.0-100.0); BG SAMPLE SITE RIGHT BRACHIAL; BG TIDAL VOLUME(mL) 500 mL; BG TOTAL HEMOGLOBIN 9.5 g/dL (12.0-18.0); BG VENT MODE VENT - A/C; BG VENT RATE 14 set
[2018-08-27] MEDS: CARVEDILOL 3.125 MG TABLET PO SCH ×2 (08:34→20:04)
[2018-08-27] MEDS: GUAIFENESIN 600MG ER TABLET PO SCH (08:34)
[2018-08-27] MEDS: ASPIRIN 81MG EC TABLET PO SCH (08:34)
[2018-08-27] MEDS: PANTOPRAZOLE SODIUM 40 MG/VIAL IV SCH (08:34)
[2018-08-27] MEDS: DOCUSATE SODIUM SUGAR FREE 100MG/10ML UDC NG SCH ×2 (08:35→17:00)
[2018-08-27] MEDS: METHYLPREDNISOLONE SOD SUCC 40 MG/ML VIAL IV SCH ×2 (08:35→17:23)
[2018-08-27] MEDS ORDERED: FUROSEMIDE 40MG/4ML VIAL IVP NR (13:15)
[2018-08-27] MEDS: DIGOXIN 125MCG TABLET PO SCH (17:23)
[2018-08-27] MEDS: GUAIFENESIN 200MG/10ML SUGAR FREE UDC NG SCH (23:48)
[2018-08-28] VITALS (82 sets, daily range): BP systolic 81–112; BP diastolic 18–76
[2018-08-28] MEDS: IPRATROPIUM/ALBUTEROL 0.5-3(2.5)MG/3ML NEB HHN SCH ×6 (00:26→20:27)
[2018-08-28] MEDS: NAFCILLIN SODIUM IV SCH ×6 (02:13→22:59)
[2018-08-28] MEDS: DEXTROSE 5% IV SCH ×6 (02:13→22:59)
[2018-08-28] MEDS: WATER IV SCH ×6 (02:13→22:59)
[2018-08-28] MEDS: SODIUM CHLORIDE 0.9% 1,000 ML IV SCH ×2 (02:14→22:00)
[2018-08-28] MEDS: PIPERACILLIN/TAZ 2.25G PREMIX 50 ML IV SCH ×4 (04:18→22:59)
[2018-08-28] MEDS: PHENYLEPHRINE 80 MG in DEXT 5% WATER 492 ML IV PRN ×2 (05:15→12:52)
[2018-08-28] MEDS: BLOOD SUGAR DIAGNOSTIC STRIP TEST SCH ×3 (05:18→17:47)
[2018-08-28] MEDS: SODIUM CHLORIDE 0.9% INJ 3ML FLUSH IVF SCH ×3 (05:19→21:00)
[2018-08-28] MEDS: PROPOFOL 10MG/ML 100ML 100 ML IV PRN ×2 (05:20→17:23)
[2018-08-28] MEDS: INSULIN LISPRO 100 UNITS/ML SUBCUT SCH ×3 (06:00→17:45)
[2018-08-28 07:09] LABS: HEMATOCRIT. 32.7 % (36.0-48.0); MEAN CORPUSCULAR HEMOGLOBIN 27.6 pg (28.0-32.0); MEAN CORPUSCULAR VOLUME 86.9 fL (81.0-99.0); MEAN PLATELET VOLUME 10.1 fl (7.4-10.4); PLATELET 234 x1000/uL (130-400); RED BLOOD CELL COUNT 3.76 mill/uL (4.2-5.4); RED CELL DISTRIBUTION WIDTH 19.2 % (11.6-14.6)
[2018-08-28 07:10] LABS: HEMOGLOBIN. 10.4 g/dL (12.0-16.0)
[2018-08-28] MEDS: CARVEDILOL 3.125 MG TABLET PO SCH ×2 (08:44→21:00)
[2018-08-28] MEDS: DOCUSATE SODIUM SUGAR FREE 100MG/10ML UDC NG SCH ×2 (08:45→16:51)
[2018-08-28 09:23] LABS: BG BASE EXCESS -7.6 mmol/L (-2.0-2.0); BG CARBOXYHEMOGLOBIN 0.1 % (0.5-1.5); BG DEOXYHEMOGLOBIN 1.9 % (0.0-5.0); BG FRACTION INSPIRED OXYGEN 40; BG HCO3 ACT 15.4 mmol/L (22.0-26.0); BG METHEMOGLOBIN 0.3 % (0.0-1.5); BG OXYGEN SATURATION 98.1 % (92.0-98.5); BG OXYHEMOGLOBIN 97.7 % (94.0-97.0); BG PCO2 24.6 mmHg (35.0-45.0); BG PH 7.415 (7.350-7.450); BG PO2 113.9 mmHg (75.0-100.0); BG SAMPLE SITE LEFT BRACHIAL; BG TIDAL VOLUME(mL) 500 mL; BG TOTAL HEMOGLOBIN 11.3 g/dL (12.0-18.0); BG VENT MODE VENT - A/C; BG VENT RATE 14 set
[2018-08-28] MEDS: PANTOPRAZOLE SODIUM 40 MG/VIAL IV SCH (09:26)
[2018-08-28] MEDS: ASPIRIN 81MG TABLET NG SCH (09:26)
[2018-08-28] MEDS: METHYLPREDNISOLONE SOD SUCC 40 MG/ML VIAL IV SCH ×2 (09:26→17:22)
[2018-08-28] MEDS: GUAIFENESIN 200MG/10ML SUGAR FREE UDC NG SCH ×2 (09:26→21:00)
[2018-08-28 09:50] LABS: NUCLEATED RED BLOOD CELLS 1 /100 WBC; PLATELET ESTIMATE NORMAL
[2018-08-28] MEDS: INSULIN GLARGINE UD 100 UNITS/ML SYR SUBCUT SCH ×2 (11:42→22:00)
[2018-08-28] MEDS: HEPARIN 25,000 UNITS PREMIX 500 ML IV SCH (12:51)
[2018-08-28] MEDS: CITRIC ACID/SODIUM CITRATE SOLN 30ML UDC NG SCH (17:22)
[2018-08-28] MEDS: DIGOXIN 125MCG TABLET PO SCH (17:46)
[2018-08-29] VITALS (76 sets, daily range): BP systolic 71–119; BP diastolic 38–72
[2018-08-29] MEDS: IPRATROPIUM/ALBUTEROL 0.5-3(2.5)MG/3ML NEB HHN SCH ×6 (00:12→20:50)
[2018-08-29] MEDS: INSULIN LISPRO 100 UNITS/ML SUBCUT SCH ×5 (00:50→23:43)
[2018-08-29] MEDS: BLOOD SUGAR DIAGNOSTIC STRIP TEST SCH ×5 (00:51→23:40)
[2018-08-29] MEDS: DEXTROSE 5% IV SCH ×6 (02:00→22:17)
[2018-08-29] MEDS: NAFCILLIN SODIUM IV SCH ×6 (02:00→22:17)
[2018-08-29] MEDS: WATER IV SCH ×6 (02:00→22:17)
[2018-08-29] MEDS: SODIUM CHLORIDE 0.9% 1,000 ML IV SCH ×2 (02:01→02:04)
[2018-08-29] MEDS: PIPERACILLIN/TAZ 2.25G PREMIX 50 ML IV SCH ×4 (05:03→22:17)
[2018-08-29] MEDS: SODIUM CHLORIDE 0.9% INJ 3ML FLUSH IVF SCH ×3 (06:09→20:51)
[2018-08-29] MEDS: PROPOFOL 10MG/ML 100ML 100 ML IV PRN (06:16)
[2018-08-29 06:36] LABS: HEMATOCRIT. 35.7 % (36.0-48.0); HEMOGLOBIN. 11.4 g/dL (12.0-16.0); MEAN CORPUSCULAR HEMOGLOBIN 27.7 pg (28.0-32.0); MEAN CORPUSCULAR VOLUME 86.9 fL (81.0-99.0); MEAN PLATELET VOLUME 9.9 fl (7.4-10.4); PLATELET 292 x1000/uL (130-400); RED BLOOD CELL COUNT 4.11 mill/uL (4.2-5.4); RED CELL DISTRIBUTION WIDTH 19.6 % (11.6-14.6)
[2018-08-29] MEDS: PHENYLEPHRINE 80 MG in DEXT 5% WATER 492 ML IV PRN ×2 (06:53→19:11)
[2018-08-29 06:55] LABS: CHLORIDE 92 mEq/L (98-107)
[2018-08-29 07:48] LABS: BG BASE EXCESS -6.9 mmol/L (-2.0-2.0); BG CARBOXYHEMOGLOBIN 0.4 % (0.5-1.5); BG DEOXYHEMOGLOBIN 1.2 % (0.0-5.0); BG FRACTION INSPIRED OXYGEN 40; BG HCO3 ACT 16.6 mmol/L (22.0-26.0); BG METHEMOGLOBIN 0.3 % (0.0-1.5); BG OXYGEN SATURATION 98.8 % (92.0-98.5); BG OXYHEMOGLOBIN 98.1 % (94.0-97.0); BG PCO2 27.7 mmHg (35.0-45.0); BG PH 7.395 (7.350-7.450); BG PO2 151.8 mmHg (75.0-100.0); BG SAMPLE SITE LEFT BRACHIAL; BG TIDAL VOLUME(mL) 500 mL; BG VENT MODE VENT - A/C; BG VENT RATE 14 set
[2018-08-29 08:53] LABS: NUCLEATED RED BLOOD CELLS 3 /100 WBC; PLATELET ESTIMATE NORMAL
[2018-08-29] MEDS: CARVEDILOL 3.125 MG TABLET PO SCH ×2 (09:00→20:51)
[2018-08-29] MEDS: DOCUSATE SODIUM SUGAR FREE 100MG/10ML UDC NG SCH ×2 (09:00→16:58)
[2018-08-29] MEDS: FUROSEMIDE 40MG/4ML VIAL IVP SCH (09:00)
[2018-08-29] MEDS: CITRIC ACID/SODIUM CITRATE SOLN 30ML UDC NG SCH ×3 (09:28→17:00)
[2018-08-29] MEDS: PANTOPRAZOLE SODIUM 40 MG/VIAL IV SCH (09:28)
[2018-08-29] MEDS: ASPIRIN 81MG TABLET NG SCH (09:28)
[2018-08-29] MEDS: GUAIFENESIN 200MG/10ML SUGAR FREE UDC NG SCH ×2 (09:29→20:51)
[2018-08-29] MEDS: INSULIN GLARGINE UD 100 UNITS/ML SYR SUBCUT SCH ×2 (09:30→22:20)
[2018-08-29] MEDS ORDERED: METHYLPREDNISOLONE SOD SUCC 40 MG/ML VIAL IV NR (09:45)
[2018-08-29] MEDS ORDERED: WATER IV SCH (10:00)
[2018-08-29] MEDS ORDERED: POTASSIUM CHLORIDE 20MEQ/PACKET NG SCH (10:00)
[2018-08-29] MEDS ORDERED: KCL 20MEQ/100ML PREMIX 100 ML IV SCH (10:00)
[2018-08-29] MEDS ORDERED: DEXT 5% IV SCH (10:00)
[2018-08-29] MEDS ORDERED: CALCIUM GLUCONATE IV SCH (10:00)
[2018-08-29] MEDS ORDERED: FUROSEMIDE 40MG/4ML VIAL IVP SCH (11:00)
[2018-08-29] MEDS ORDERED: INSULIN GLARGINE UD 100 UNITS/ML SYR SUBCUT SCH (11:00)
[2018-08-29] MEDS: DIGOXIN 125MCG TABLET PO SCH (16:57)
[2018-08-29] MEDS: HEPARIN 25,000 UNITS PREMIX 500 ML IV SCH (22:20)
[2018-08-30] VITALS (92 sets, daily range): BP systolic 83–121; BP diastolic 30–66
[2018-08-30] MEDS: SODIUM CHLORIDE 0.9% 1,000 ML IV SCH (00:03)
[2018-08-30] MEDS: PROPOFOL 10MG/ML 100ML 100 ML IV PRN ×3 (00:14→19:50)
[2018-08-30] MEDS: IPRATROPIUM/ALBUTEROL 0.5-3(2.5)MG/3ML NEB HHN SCH ×6 (00:36→19:49)
[2018-08-30] MEDS: DEXTROSE 5% IV SCH ×5 (02:18→18:35)
[2018-08-30] MEDS: WATER IV SCH ×5 (02:18→18:35)
[2018-08-30] MEDS: NAFCILLIN SODIUM IV SCH ×5 (02:18→18:35)
[2018-08-30] MEDS: PIPERACILLIN/TAZ 2.25G PREMIX 50 ML IV SCH ×3 (04:20→18:32)
[2018-08-30 05:57] LABS: HEMATOCRIT. 32.2 % (36.0-48.0); HEMOGLOBIN. 10.4 g/dL (12.0-16.0); MEAN CORPUSCULAR HEMOGLOBIN 27.7 pg (28.0-32.0); MEAN CORPUSCULAR VOLUME 85.8 fL (81.0-99.0); MEAN PLATELET VOLUME 9.5 fl (7.4-10.4); PLATELET 216 x1000/uL (130-400); RED BLOOD CELL COUNT 3.75 mill/uL (4.2-5.4); RED CELL DISTRIBUTION WIDTH 19.4 % (11.6-14.6)
[2018-08-30] MEDS: INSULIN LISPRO 100 UNITS/ML SUBCUT SCH ×3 (06:00→18:00)
[2018-08-30 06:13] LABS: CHLORIDE 96 mEq/L (98-107)
[2018-08-30 06:19] LABS: PHOSPHORUS 5.4 mg/dL (2.5-4.9)
[2018-08-30] MEDS: BLOOD SUGAR DIAGNOSTIC STRIP TEST SCH ×3 (06:44→18:34)
[2018-08-30] MEDS: SODIUM CHLORIDE 0.9% INJ 3ML FLUSH IVF SCH ×3 (06:47→21:39)
[2018-08-30 08:16] LABS: BG BASE EXCESS -5.4 mmol/L (-2.0-2.0); BG CARBOXYHEMOGLOBIN 0.3 % (0.5-1.5); BG DEOXYHEMOGLOBIN 2.1 % (0.0-5.0); BG FRACTION INSPIRED OXYGEN 40; BG HCO3 ACT 17.9 mmol/L (22.0-26.0); BG METHEMOGLOBIN 0.3 % (0.0-1.5); BG OXYGEN SATURATION 97.9 % (92.0-98.5); BG OXYHEMOGLOBIN 97.3 % (94.0-97.0); BG PH 7.423 (7.350-7.450); BG PO2 110.9 mmHg (75.0-100.0); BG PRESSURE SUPPORT 12; BG SAMPLE SITE RIGHT BRACHIAL; BG TIDAL VOLUME(mL) 500 mL; BG TOTAL HEMOGLOBIN 11.1 g/dL (12.0-18.0); BG VENT MODE VENT - SIMV; BG VENT RATE 8 set
[2018-08-30 08:30] LABS: NUCLEATED RED BLOOD CELLS 1 /100 WBC
[2018-08-30 08:31] LABS: PLATELET ESTIMATE NORMAL
[2018-08-30] MEDS: FUROSEMIDE 40MG/4ML VIAL IVP SCH ×2 (09:00→09:05)
[2018-08-30] MEDS ORDERED: POTASSIUM CHLORIDE 20MEQ/PACKET GT SCH (09:00)
[2018-08-30] MEDS: PANTOPRAZOLE SODIUM 40 MG/VIAL IV SCH ×2 (09:04→21:36)
[2018-08-30] MEDS: DOCUSATE SODIUM SUGAR FREE 100MG/10ML UDC NG SCH ×2 (09:04→17:00)
[2018-08-30] MEDS: CITRIC ACID/SODIUM CITRATE SOLN 30ML UDC NG SCH ×3 (09:04→18:32)
[2018-08-30] MEDS: GUAIFENESIN 200MG/10ML SUGAR FREE UDC NG SCH ×2 (09:04→21:36)
[2018-08-30] MEDS: PREDNISONE 20MG TABLET PO SCH (09:05)
[2018-08-30] MEDS: ASPIRIN 81MG TABLET NG SCH (09:05)
[2018-08-30] MEDS: CARVEDILOL 3.125 MG TABLET PO SCH ×2 (09:05→19:51)
[2018-08-30] MEDS: INSULIN GLARGINE UD 100 UNITS/ML SYR SUBCUT SCH ×2 (10:00→21:39)
[2018-08-30] MEDS ORDERED: DEXT 5% IV SCH (11:00)
[2018-08-30] MEDS ORDERED: KCL 20MEQ/100ML PREMIX 100 ML IV SCH (11:00)
[2018-08-30] MEDS ORDERED: MAGNESIUM 2 G PREMIX 50 ML IV SCH (11:00)
[2018-08-30] MEDS ORDERED: WATER IV SCH (11:00)
[2018-08-30] MEDS ORDERED: CALCIUM GLUCONATE IV SCH (11:00)
[2018-08-30] MEDS: CALCIUM CARBONATE 1250MG TABLET (500MG ELEMENTAL CALCIUM) GT SCH ×3 (12:13→18:33)
[2018-08-30] MEDS: MIDODRINE HCL 5MG TABLET NG SCH ×2 (14:55→21:38)
[2018-08-30] MEDS: DIGOXIN 125MCG TABLET PO SCH (18:33)
[2018-08-30] MEDS: PHENYLEPHRINE 80 MG in DEXT 5% WATER 492 ML IV PRN (18:37)
[2018-08-30] MEDS ORDERED: NOREPINEPHRINE 16 MG in DEXT 5% WATER 484 ML IV PRN (23:45)
[2018-08-31] VITALS (98 sets, daily range): BP systolic 82–140; BP diastolic 37–106
[2018-08-31] MEDS ORDERED: DEXTROSE 5% WATER 1,000 ML IV SCH
[2018-08-31] MEDS: PIPERACILLIN/TAZ 2.25G PREMIX 50 ML IV SCH ×5 (03:48→22:28)
[2018-08-31] MEDS: IPRATROPIUM/ALBUTEROL 0.5-3(2.5)MG/3ML NEB HHN SCH ×6 (03:53→21:01)
[2018-08-31] MEDS: HEPARIN 25,000 UNITS PREMIX 500 ML IV SCH (03:58)
[2018-08-31] MEDS: INSULIN LISPRO 100 UNITS/ML SUBCUT SCH ×5 (06:00→22:55)
[2018-08-31] MEDS: SODIUM CHLORIDE 0.9% INJ 3ML FLUSH IVF SCH ×3 (06:28→21:51)
[2018-08-31] MEDS: BLOOD SUGAR DIAGNOSTIC STRIP TEST SCH ×4 (06:28→17:22)
[2018-08-31] MEDS: MIDODRINE HCL 5MG TABLET NG SCH (06:28)
[2018-08-31 06:43] LABS: HEMATOCRIT. 30.5 % (36.0-48.0); HEMOGLOBIN. 10.1 g/dL (12.0-16.0); MEAN CORPUSCULAR HEMOGLOBIN 27.7 pg (28.0-32.0); MEAN CORPUSCULAR VOLUME 83.7 fL (81.0-99.0); MEAN PLATELET VOLUME 9.7 fl (7.4-10.4); PLATELET 202 x1000/uL (130-400); RED BLOOD CELL COUNT 3.65 mill/uL (4.2-5.4); RED CELL DISTRIBUTION WIDTH 19.6 % (11.6-14.6)
[2018-08-31 06:57] LABS: PHOSPHORUS 4.5 mg/dL (2.5-4.9)
[2018-08-31 07:50] LABS: HEPATITIS B SURFACE ANTIGEN NEGATIVE
[2018-08-31 08:20] LABS: HEPATITIS A AB IGM NEGATIVE (NEGATIVE)
[2018-08-31] MEDS: DOCUSATE SODIUM SUGAR FREE 100MG/10ML UDC NG SCH ×2 (08:37→16:05)
[2018-08-31] MEDS: CALCIUM CARBONATE 1250MG TABLET (500MG ELEMENTAL CALCIUM) GT SCH ×3 (08:37→16:05)
[2018-08-31] MEDS: GUAIFENESIN 200MG/10ML SUGAR FREE UDC NG SCH ×2 (08:37→22:28)
[2018-08-31] MEDS: CITRIC ACID/SODIUM CITRATE SOLN 30ML UDC NG SCH ×3 (08:37→16:05)
[2018-08-31] MEDS: FUROSEMIDE 40MG/4ML VIAL IVP SCH (08:47)
[2018-08-31] MEDS: PANTOPRAZOLE SODIUM 40 MG/VIAL IV SCH ×3 (08:48→22:54)
[2018-08-31] MEDS: CARVEDILOL 3.125 MG TABLET PO SCH ×2 (09:00→21:00)
[2018-08-31] MEDS: PREDNISONE 20MG TABLET PO SCH (09:00)
[2018-08-31] MEDS: INSULIN GLARGINE UD 100 UNITS/ML SYR SUBCUT SCH ×2 (10:00→21:52)
[2018-08-31] MEDS ORDERED: MORPHINE SULFATE 4 MG/ML CPJ (NOT FOR IM USE) IV PRN (10:30)
[2018-08-31] MEDS ORDERED: LORAZEPAM 2MG/ML CPJ IV PRN (10:30)
[2018-08-31] MEDS: DEXT 5%/0.45% NACL 1000ML 1,000 ML IV SCH (10:49)
[2018-08-31] MEDS: PROPOFOL 10MG/ML 100ML 100 ML IV PRN ×2 (10:52→22:31)
[2018-08-31] MEDS ORDERED: POTASSIUM CHLORIDE INJ 40 MEQ in DEXT 5% WATER 250 ML IV NR (11:00)
[2018-08-31 11:24] LABS: NUCLEATED RED BLOOD CELLS 1 /100 WBC
[2018-08-31 11:25] LABS: PLATELET ESTIMATE NORMAL
[2018-08-31] MEDS: PHENYLEPHRINE 80 MG in DEXT 5% WATER 492 ML IV PRN ×2 (12:13→22:29)
[2018-08-31] MEDS: MIDODRINE HCL 5MG TABLET PO SCH ×2 (13:00→17:00)
[2018-08-31] MEDS ORDERED: MIDAZOLAM HCL 5 MG/5 ML VIAL ONE (13:39)
[2018-08-31] MEDS ORDERED: FENTANYL CITRATE/PF 50MCG/ML 2ML VIAL ONE (13:40)
[2018-08-31] MEDS: DIGOXIN 125MCG TABLET PO SCH (17:10)
[2018-08-31] MEDS ORDERED: ROCURONIUM BROMIDE 10MG/ML VIAL 5ML IV ONE ×2 (17:46→19:15)
[2018-08-31 18:28] LABS: HEMATOCRIT 30.2 % (36.0-48.0); HEMOGLOBIN 9.7 g/dL (12.0-16.0)
[2018-08-31 18:33] LABS: INR 1.1; PARTIAL THROMBOPLASTIN TIME 30.3 sec (23.4-31.0); PROTHROMBIN TIME 10.7 sec (9.1-11.1)
[2018-09-01] VITALS (110 sets, daily range): BP systolic 60–128; BP diastolic 31–63
[2018-09-01] MEDS: BLOOD SUGAR DIAGNOSTIC STRIP TEST SCH ×4 (00:12→18:00)
[2018-09-01] MEDS: IPRATROPIUM/ALBUTEROL 0.5-3(2.5)MG/3ML NEB HHN SCH ×6 (00:47→20:44)
[2018-09-01] MEDS: PROPOFOL 10MG/ML 100ML 100 ML IV PRN (03:24)
[2018-09-01 05:38] LABS: HEMATOCRIT. 22.6 % (36.0-48.0); HEMOGLOBIN. 7.3 g/dL (12.0-16.0); MEAN CORPUSCULAR HEMOGLOBIN 27.9 pg (28.0-32.0); MEAN CORPUSCULAR VOLUME 86.4 fL (81.0-99.0); MEAN PLATELET VOLUME 10.2 fl (7.4-10.4); PLATELET 171 x1000/uL (130-400); RED BLOOD CELL COUNT 2.62 mill/uL (4.2-5.4)
[2018-09-01] MEDS: PIPERACILLIN/TAZ 2.25G PREMIX 50 ML IV SCH ×3 (05:42→17:42)
[2018-09-01] MEDS: INSULIN LISPRO 100 UNITS/ML SUBCUT SCH ×3 (05:42→18:00)
[2018-09-01] MEDS: SODIUM CHLORIDE 0.9% INJ 3ML FLUSH IVF SCH ×3 (05:42→22:10)
[2018-09-01 05:58] LABS: PHOSPHORUS 4.5 mg/dL (2.5-4.9)
[2018-09-01 08:07] LABS: BG BASE EXCESS -0.7 mmol/L (-2.0-2.0); BG CARBOXYHEMOGLOBIN 0.8 % (0.5-1.5); BG DEOXYHEMOGLOBIN 1.3 % (0.0-5.0); BG FRACTION INSPIRED OXYGEN 40; BG HCO3 ACT 23.2 mmol/L (22.0-26.0); BG METHEMOGLOBIN 0.5 % (0.0-1.5); BG OXYGEN SATURATION 98.7 % (92.0-98.5); BG OXYHEMOGLOBIN 97.4 % (94.0-97.0); BG PCO2 34.6 mmHg (35.0-45.0); BG PH 7.445 (7.350-7.450); BG SAMPLE SITE RIGHT RADIAL; BG TIDAL VOLUME(mL) 500 mL; BG TOTAL HEMOGLOBIN 7.1 g/dL (12.0-18.0); BG VENT MODE VENT - A/C; BG VENT RATE 8 set
[2018-09-01] MEDS: PHENYLEPHRINE 80 MG in DEXT 5% WATER 492 ML IV PRN ×2 (08:08→16:42)
[2018-09-01] MEDS: CALCIUM CARBONATE 1250MG TABLET (500MG ELEMENTAL CALCIUM) GT SCH ×4 (09:00→17:42)
[2018-09-01] MEDS: DOCUSATE SODIUM SUGAR FREE 100MG/10ML UDC NG SCH ×2 (09:00→17:00)
[2018-09-01] MEDS: MIDODRINE HCL 5MG TABLET PO SCH ×4 (09:00→17:42)
[2018-09-01] MEDS: GUAIFENESIN 200MG/10ML SUGAR FREE UDC NG SCH ×2 (09:00→22:10)
[2018-09-01] MEDS: CITRIC ACID/SODIUM CITRATE SOLN 30ML UDC NG SCH ×3 (09:00→17:44)
[2018-09-01] MEDS: CARVEDILOL 3.125 MG TABLET PO SCH ×2 (09:00→21:00)
[2018-09-01] MEDS: PREDNISONE 20MG TABLET PO SCH (09:00)
[2018-09-01] MEDS: FUROSEMIDE 40MG/4ML VIAL IVP SCH (09:15)
[2018-09-01] MEDS: PANTOPRAZOLE SODIUM 40 MG/VIAL IV SCH ×2 (09:15→22:10)
[2018-09-01 10:14] LABS: PLATELET ESTIMATE NORMAL
[2018-09-01] MEDS: INSULIN GLARGINE UD 100 UNITS/ML SYR SUBCUT SCH ×2 (12:00→22:00)
[2018-09-01] MEDS: DEXT 5%/0.45% NACL 1000ML 1,000 ML IV SCH (13:33)
[2018-09-01] MEDS: DIGOXIN 125MCG TABLET PO SCH (17:42)
[2018-09-01 23:57] LABS: HEMATOCRIT 24.3 % (36.0-48.0); HEMOGLOBIN 7.9 g/dL (12.0-16.0)
[2018-09-02] VITALS (44 sets, daily range): BP systolic 47–111; BP diastolic 20–70
[2018-09-02] MEDS: BLOOD SUGAR DIAGNOSTIC STRIP TEST SCH ×2 (00:27→06:57)
[2018-09-02] MEDS: IPRATROPIUM/ALBUTEROL 0.5-3(2.5)MG/3ML NEB HHN SCH ×3 (00:58→08:50)
[2018-09-02] MEDS: PHENYLEPHRINE 80 MG in DEXT 5% WATER 492 ML IV PRN ×2 (01:17→09:26)
[2018-09-02 05:37] LABS: HEMATOCRIT. 22.1 % (36.0-48.0); HEMOGLOBIN. 7.3 g/dL (12.0-16.0); MEAN CORPUSCULAR HEMOGLOBIN 27.9 pg (28.0-32.0); MEAN CORPUSCULAR VOLUME 84.1 fL (81.0-99.0); MEAN PLATELET VOLUME 9.9 fl (7.4-10.4); PLATELET 120 x1000/uL (130-400); RED BLOOD CELL COUNT 2.62 mill/uL (4.2-5.4); RED CELL DISTRIBUTION WIDTH 17.4 % (11.6-14.6)
[2018-09-02] MEDS ORDERED: NOREPINEPHRINE 16 MG in DEXT 5% WATER 234 ML IV PRN (06:04)
[2018-09-02] MEDS: INSULIN LISPRO 100 UNITS/ML SUBCUT SCH ×2 (06:54)
[2018-09-02] MEDS: SODIUM CHLORIDE 0.9% INJ 3ML FLUSH IVF SCH (06:57)
[2018-09-02 07:26] LABS: NUCLEATED RED BLOOD CELLS 1 /100 WBC; PLATELET ESTIMATE SLIGHTLY DECREASED
[2018-09-02] MEDS ORDERED: NOREPINEPHRINE 32 MG in DEXT 5% WATER 468 ML IV STA (07:35)
[2018-09-02] MEDS ORDERED: VASOPRESSIN 10 UNIT in SODIUM CHLORIDE 0.9% 99.5 ML IV STA (07:35)
[2018-09-02] MEDS ORDERED: DOPAMINE 400MG/250ML PREMIX 250 ML IV ONE (08:04)
[2018-09-02] MEDS ORDERED: EPINEPHRINE IV PRN (08:15)
[2018-09-02] MEDS ORDERED: SODIUM CHLORIDE 0.9% IV PRN (08:15)
[2018-09-02] MEDS ORDERED: EPINEPHRINE 4 MG in SODIUM CHLORIDE 0.9% 246 ML IV PRN (08:30)
[2018-09-02 08:54] LABS: BG BASE EXCESS -17.9 mmol/L (-2.0-2.0); BG CARBOXYHEMOGLOBIN 0.7 % (0.5-1.5); BG DEOXYHEMOGLOBIN 15.9 % (0.0-5.0); BG FRACTION INSPIRED OXYGEN 100; BG HCO3 ACT 12.3 mmol/L (22.0-26.0); BG METHEMOGLOBIN 0.3 % (0.0-1.5); BG OXYGEN SATURATION 83.9 % (92.0-98.5); BG OXYHEMOGLOBIN 83.1 % (94.0-97.0); BG PO2 67.7 mmHg (75.0-100.0); BG SAMPLE SITE RIGHT RADIAL; BG TIDAL VOLUME(mL) 500 mL; BG VENT MODE VENT - A/C; BG VENT RATE 10 set
[2018-09-02] MEDS: GUAIFENESIN 200MG/10ML SUGAR FREE UDC NG SCH (09:23)
[2018-09-02] MEDS: CITRIC ACID/SODIUM CITRATE SOLN 30ML UDC NG SCH (09:23)
[2018-09-02] MEDS: MIDODRINE HCL 5MG TABLET PO SCH (09:23)
[2018-09-02] MEDS: CALCIUM CARBONATE 1250MG TABLET (500MG ELEMENTAL CALCIUM) GT SCH (09:23)
[2018-09-02] MEDS: DOCUSATE SODIUM SUGAR FREE 100MG/10ML UDC NG SCH (09:23)
[2018-09-02] MEDS: INSULIN GLARGINE UD 100 UNITS/ML SYR SUBCUT SCH (09:25)
[2018-09-02] MEDS ORDERED: EPINEPHRINE 0.1MG/ML (1:10,000) 10ML SYR ONE (13:51)
[2018-09-02] MEDS ORDERED: SODIUM BICARBONATE 8.4% 1 MEQ/ML 50ML SYR IV ONE (13:51)
== END 2018-09-02 10:17 | disposition expired | DRG 3 ==
LOC: ER 23:42 → 5WST 08-17 05:42 → EDBEDREQTM 08-17 05:43 → EDBEDREQSVC 08-17 05:43 → EDBEDREQ 08-17 05:43 → ENRESERV 08-17 08:40 → CVICU 08-18 19:30 → 6WST 08-25 15:12 → CVICU 08-25 15:31
PROVIDERS: ADMIT Internal Medicine; ATTEND Internal Medicine
PROC: 0BH18EZ Insertion of Endotracheal Airway into Trachea, Via Natural or Artificial Opening Endoscopic (ICD-10-PCS; 2018-08-17)
PROC: 5A1955Z Respiratory Ventilation, Greater than 96 Consecutive Hours (ICD-10-PCS; 2018-08-18)
PROC: 05HY33Z Insertion of Infusion Device into Upper Vein, Percutaneous Approach (ICD-10-PCS; 2018-08-19)
PROC: B54MZZA Ultrasonography of Right Upper Extremity Veins, Guidance (ICD-10-PCS; 2018-08-19)
PROC: 5A1955Z Respiratory Ventilation, Greater than 96 Consecutive Hours (ICD-10-PCS; 2018-08-25)
PROC: 30243N1 Transfusion of Nonautologous Red Blood Cells into Central Vein, Percutaneous Approach (ICD-10-PCS; 2018-08-25)
PROC: 0B110F4 Bypass Trachea to Cutaneous with Tracheostomy Device, Open Approach (ICD-10-PCS; principal; 2018-08-31)
PROC: 0GBJ0ZZ Excision of Thyroid Gland Isthmus, Open Approach (ICD-10-PCS; 2018-08-31)
PROC: 0DH63UZ Insertion of Feeding Device into Stomach, Percutaneous Approach (ICD-10-PCS; 2018-08-31)
PROC: 5A12012 Performance of Cardiac Output, Single, Manual (ICD-10-PCS; 2018-09-02)
DX: A41.9 Sepsis, unspecified organism (principal); G93.41 Metabolic encephalopathy; N17.0 Acute kidney failure with tubular necrosis; I21.4 Non-ST elevation (NSTEMI) myocardial infarction; I50.43 Acute on chronic combined systolic (congestive) and diastolic (congestive) heart failure; J15.211 Pneumonia due to Methicillin susceptible Staphylococcus aureus; E43 Unspecified severe protein-calorie malnutrition; J96.01 Acute respiratory failure with hypoxia; K72.00 Acute and subacute hepatic failure without coma; N39.0 Urinary tract infection, site not specified; E44.0 Moderate protein-calorie malnutrition; J44.0 Chronic obstructive pulmonary disease with (acute) lower respiratory infection; D62 Acute posthemorrhagic anemia; E87.1 Hypo-osmolality and hyponatremia; E87.2 Acidosis; G93.1 Anoxic brain damage, not elsewhere classified; I13.0 Hypertensive heart and chronic kidney disease with heart failure and stage 1 through stage 4 chronic kidney disease, or unspecified chronic kidney disease; I42.9 Cardiomyopathy, unspecified; J44.1 Chronic obstructive pulmonary disease with (acute) exacerbation; Z99.11 Dependence on respirator [ventilator] status; I46.9 Cardiac arrest, cause unspecified; Z66 Do not resuscitate; E87.5 Hyperkalemia; N18.3 Chronic kidney disease, stage 3 (moderate); E11.22 Type 2 diabetes mellitus with diabetic chronic kidney disease; E11.51 Type 2 diabetes mellitus with diabetic peripheral angiopathy without gangrene; E11.65 Type 2 diabetes mellitus with hyperglycemia; E78.5 Hyperlipidemia, unspecified; E83.39 Other disorders of phosphorus metabolism; E83.42 Hypomagnesemia; E83.51 Hypocalcemia; R26.9 Unspecified abnormalities of gait and mobility; E87.6 Hypokalemia; F41.1 Generalized anxiety disorder; I08.1 Rheumatic disorders of both mitral and tricuspid valves; K31.89 Other diseases of stomach and duodenum; K52.9 Noninfective gastroenteritis and colitis, unspecified; R13.10 Dysphagia, unspecified; I25.2 Old myocardial infarction; Z78.1 Physical restraint status; Z95.820 Peripheral vascular angioplasty status with implants and grafts; Z87.891 Personal history of nicotine dependence; Z79.899 Other long term (current) drug therapy
CPT/HCPCS: 31500; 36415; 36569; 36600; 70551; 71045; 76700; 76770; 76937; 78580; 80048; 80076; 80162; 80202; 82248; 82270; 82308; 82330; 82375; 82550; 82553; 82570; 82805; 82962; 83605; 83735; 83880; 84100; 84132; 84145; 84300; 84478; 84484; 84540; 85014; 85018; 86705; 86709; 86803; 86850; 86900; 86920; 87070; 87077; 87340; 90686; 90732; 92610; 92950; 93005; 93306; 93970; 94002; 94003; 94640; 97162; 97166; 97530; 99285; A6261; C1725; C9113; J0330; J0461; J0610; J0696; J1160; J1265; J1642; J1644; J1650; J1815; J1940; J2060; J2250; J2270; J2370; J2543; J2704; J2920; J3010; J3370; J3475; J3480; J3490; J7030; J7040; J7050; J7060; J7070; J7512; J7620; P9016; A4315